=== PATIENT | male | born 1955 | race Caucasian/White ===

== ENCOUNTER 2018-07-04 15:50 | Emergency (ER) | payer OTHER ==
[2018-07-04 16:09] VITALS: RESP 18; TEMP 97.8
[2018-07-04] MEDS ORDERED: SODIUM CHLORIDE 0.9% 1,000 ML IV STA (16:30)
--- NOTE | 2018-07-04 16:34 | ED ---
General Adult HPI - General Chief complaint: ENT Stated complaint: Concerns for dehydration Time Seen by Provider: 07/04/18 15:54 Source: patient, EMS, RN notes reviewed Mode of arrival: EMS Limitations: no limitations - History of Present Illness Initial comments: Patient is a pleasant 63-year-old male presenting to the emergency department from primary care physician's office with concern for dehydration. Patient did have surgery on his throat and tongue on May 04. Patient states he does have some discomfort however has been persistent since his surgery. No worse. Patient states he does not tolerate oral intake and does use a feeding tube. Patient also has trach. Patient communicates by answering yes or no or writing. Patient does not feel he needs to be here. Patient does request having suctioning done. - Related Data Home Medications Medication Instructions Recorded Confirmed Citalopram Hydrobromide [Celexa 40 mg NG-TUBE DAILY 07/04/18 07/04/18 Oral Soln] Gabapentin Oral Soln [Neurontin 300 mg NG-TUBE HS 07/04/18 07/04/18 Oral Soln] Levothyroxine Sodium [Synthroid] 112 mcg NG-TUBE DIRECTED 07/04/18 07/04/18 Oxycodone 5mg/5ml 5 mg NG-TUBE Q6HR PRN 07/04/18 07/04/18 Verapamil [Isoptin] 40 mg NG-TUBE Q8H 07/04/18 07/04/18 Vitamin D 400 Unit/1ml 2,000 unit NG-TUBE DAILY 07/04/18 07/04/18 traZODone HCL [TraZODone HCl] 50 mg NG-TUBE HS 07/04/18 07/04/18 Allergies Allergy/AdvReac Type Severity Reaction Status Date / Time No Known Allergies Allergy Verified 07/04/18 15:54 Review of Systems ROS Statement: Those systems with pertinent positive or pertinent negative responses have been documented in the HPI. ROS Other: All systems not noted in ROS Statement are negative. Constitutional: Denies: fever, chills Eyes: Denies: eye pain ENT: Reports: throat pain (Chronic). Denies: ear pain Respiratory: Denies: dyspnea Cardiovascular: Denies: chest pain Endocrine: Denies: fatigue Gastrointestinal: Denies: abdominal pain Genitourinary: Denies: urgency Musculoskeletal: Denies: back pain Skin: Denies: rash Neurological: Denies: headache Past Medical History Past Medical History: Hypertension Additional Past Medical History / Comment(s): throat ca History of Any Multi-Drug Resistant Organisms: None Reported Additional Past Surgical History / Comment(s): left kidney removed, spleen surgery, throat/mouth/colostomy-r/t throat cancer Past Psychological History: No Psychological Hx Reported Smoking Status: Current every day smoker Past Alcohol Use History: None Reported Past Drug Use History: None Reported General Exam Limitations: no limitations General appearance: alert, in no apparent distress Head exam: Present: atraumatic Eye exam: Present: normal appearance ENT exam: Present: other (Patient has abnormal shaped tongue with suture landin. This does protrude somewhat from the mouth with some lower lip swelling as well. Patient states this is all chronic. Posterior pharynx without swelling.) Neck exam: Present: normal inspection. Absent: tenderness Respiratory exam: Present: normal lung sounds bilaterally Cardiovascular Exam: Present: regular rate, normal rhythm GI/Abdominal exam: Present: soft. Absent: tenderness Extremities exam: Present: normal inspection Neurological exam: Present: alert Psychiatric exam: Present: normal affect, normal mood Skin exam: Present: normal color Course Vital Signs 07/04/18 15:54 Temperature 97.8 F Pulse Rate 83 Respiratory 18 Rate Blood Pressure 162/98 O2 Sat by Pulse 99 Oximetry Medical Decision Making - Medical Decision Making Patient reevaluated and fully dressed sitting at bedside. Patient refuses admission and requests discharge multiple times. Case was discussed with on- call physician, Dr. Lovett, covering for Dr. Kent, who agrees patient cannot be admitted against his will. - Lab Data Result diagrams: 07/04/18 17:19 07/04/18 17:19 Lab Results 07/04/18 07/04/18 07/04/18 Range/Units 17:19 17:19 17:31 WBC 6.8 (3.8-10.6) k/uL RBC 3.49 L (4.30-5.90) m/uL Hgb 9.9 L (13.0-17.5) gm/dL Hct 32.4 L (39.0-53.0) % MCV 92.7 (80.0-100.0) fL MCH 28.4 (25.0-35.0) pg MCHC 30.6 L (31.0-37.0) g/dL RDW 15.8 H (11.5-15.5) % Plt Count 627 H (150-450) k/uL Neutrophils % 74 % Lymphocytes % 14 % Monocytes % 7 % Eosinophils % 2 % Basophils % 0 % Neutrophils # 5.1 (1.3-7.7) k/uL Lymphocytes # 1.0 (1.0-4.8) k/uL Monocytes # 0.4 (0-1.0) k/uL Eosinophils # 0.1 (0-0.7) k/uL Basophils # 0.0 (0-0.2) k/uL Hypochromasia Slight Sodium 135 L (137-145) mmol/L Potassium 4.7 (3.5-5.1) mmol/L Chloride 95 L (98-107) mmol/L Carbon Dioxide 32 H (22-30) mmol/L Anion Gap 8 mmol/L BUN 25 H (9-20) mg/dL Creatinine 0.72 (0.66-1.25) mg/dL Est GFR (CKD-EPI)AfAm >90 (>60 ml/min/1.73 sqM) Est GFR (CKD-EPI)NonAf >90 (>60 ml/min/1.73 sqM) Glucose 88 (74-99) mg/dL Calcium 9.5 (8.4-10.2) mg/dL Phosphorus 5.0 H (2.5-4.5) mg/dL Magnesium 2.2 (1.6-2.3) mg/dL Total Bilirubin 0.2 (0.2-1.3) mg/dL AST 26 (17-59) U/L ALT 18 L (21-72) U/L Alkaline Phosphatase 110 (38-126) U/L Total Protein 6.9 (6.3-8.2) g/dL Albumin 3.7 (3.5-5.0) g/dL Urine Color Yellow Urine Appearance Cloudy (Clear) Urine pH 8.0 (5.0-8.0) Ur Specific [place] 1.015 (1.001-1.035) Urine Protein Trace H (Negative) Urine Glucose (UA) Negative (Negative) Urine Ketones Negative (Negative) Urine Blood Negative (Negative) Urine Nitrite Negative (Negative) Urine Bilirubin Negative (Negative) Urine Urobilinogen <2.0 (<2.0) mg/dL Ur Leukocyte Esterase Negative (Negative) Urine RBC 2 (0-5) /hpf Ur Squamous Epith Cells <1 (0-4) /hpf Urine Bacteria Rare H (None) /hpf Hyaline Casts 2 (0-2) /lpf Urine Yeast (Budding) Moderate H (None) /hpf - Radiology Data Radiology results: image reviewed (Chest x-ray shows no acute process. COPD and mild pulmonary fibrosis.) Disposition Clinical Impression: Dehydration Disposition: HOME SELF-CARE Condition: Stable Additional Instructions: Please follow-up tomorrow with primary care physician. Return for increased pain, fever, breathing problems, increased swelling, worsening symptoms or other concerns. Please also follow-up with your surgeon, call tomorrow for follow-up in the next day or 2. Is patient prescribed a controlled substance at d/c from ED?: No Referrals: Billy Keith MD [Primary Care Provider] - 1-2 days Time of Disposition: 19:35
[2018-07-04 17:38] LABS: Basophils % (A) 0 %; Eosinophils # (A) 0.1 k/uL (0-0.7); Eosinophils % (A) 2 %; HCT 32.4 % (39.0-53.0); HGB 9.9 gm/dL (13.0-17.5); Hypochromasia Slight; Lymphocytes % (A) 14 %; MCH 28.4 pg (25.0-35.0); MCHC 30.6 g/dL (31.0-37.0); MCV 92.7 fL (80.0-100.0); Mean Platelet Volume 6.5; Monocytes # (A) 0.4 k/uL (0-1.0); Monocytes % (A) 7 %; Neutrophils # (A) 5.1 k/uL (1.3-7.7); Neutrophils % (A) 74 %; Platelet Count 627 k/uL (150-450); RBC 3.49 m/uL (4.30-5.90); RDW 15.8 % (11.5-15.5); WBC 6.8 k/uL (3.8-10.6)
[2018-07-04 17:51] LABS: ALT 18 U/L (21-72); AST 26 U/L (17-59); Albumin 3.7 g/dL (3.5-5.0); Alkaline Phosphatase 110 U/L (38-126); Anion Gap 8 mmol/L; Blood Urea Nitrogen 25 mg/dL (9-20); Calcium 9.5 mg/dL (8.4-10.2); Carbon Dioxide 32 mmol/L (22-30); Chloride 95 mmol/L (98-107); Glucose 88 mg/dL (74-99); Magnesium 2.2 mg/dL (1.6-2.3); Potassium 4.7 mmol/L (3.5-5.1); Sodium 135 mmol/L (137-145); Total Bilirubin 0.2 mg/dL (0.2-1.3); Total Protein 6.9 g/dL (6.3-8.2)
--- NOTE | 2018-07-04 17:55 | XR ---
EXAMINATION TYPE: XR chest 2V DATE OF EXAM: 07/04/2018 COMPARISON: 04/12/2016 HISTORY: Weakness and cough TECHNIQUE: Frontal and lateral views of the chest are obtained. FINDINGS: Heart and mediastinum are normal. Lungs are clear of consolidation. There are clips at the left axilla. There is tracheostomy tube. There is nasogastric tube. There is minimal coarsening of i nterstitial markings. There is mild flattening of the diaphragm. IMPRESSION: COPD and mild pulmonary fibrosis. No acute lung disease. No adverse change compared to o ld exam.
[2018-07-04 17:56] LABS: Appearance,Urine Cloudy (Clear); Bacteria,Urine Rare /hpf; Bilirubin,Urine Negative (Negative); Blood,Urine Negative (Negative); Budding Yeast,Urine Moderate /hpf; Color,Urine Yellow; Glucose,Urine (UA) Negative (Negative); Hyaline Casts,Urine 2 /lpf (0-2); Ketones,Urine Negative (Negative); Leukocyte Esterase,Urine Negative (Negative); Nitrite,Urine Negative (Negative); Protein,Urine Trace (Negative); RBC,Urine 2 /hpf (0-5); Specific Gravity,Urine 1.015 (1.001-1.035); Squamous Epithelial Cell,Urine <1 /hpf (0-4); Urobilinogen,Urine <2.0 mg/dL (<2.0)
[2018-07-04 20:06] VITALS: BP 179/109; PULSE 85
== END 2018-07-04 20:06 | disposition home or self-care (01) ==
LOC: EC 15:50
DX: E86.0 Dehydration (principal); R09.89 Other specified symptoms and signs involving the circulatory and respiratory systems; R19.8 Other specified symptoms and signs involving the digestive system and abdomen; I10 Essential (primary) hypertension; F17.200 Nicotine dependence, unspecified, uncomplicated; Z85.818 Personal history of malignant neoplasm of other sites of lip, oral cavity, and pharynx; Z98.890 Other specified postprocedural states; Z53.29 Procedure and treatment not carried out because of patient's decision for other reasons; Z79.890 Hormone replacement therapy; Z79.899 Other long term (current) drug therapy
CPT/HCPCS: 36415; 71046; 80053; 81001; 83735; 84100; 85025; 96360; 99283

== ENCOUNTER 2018-07-20 22:56 | Emergency (ER) | payer OTHER ==
--- NOTE | 2018-07-20 23:01 | ED ---
General Adult HPI - General Stated complaint: Trach Issue Time Seen by Provider: 07/20/18 23:00 - History of Present Illness Initial comments: Omar is a 63-year-old gentleman with extensive PMH including throat CA for which he has a trach and chronic NG tube. Patient is brought to the emergency department today via EMS after his tracheostomy tube became displaced. Patient is uncertain when his tracheostomy tube became displaced. He doesn't know how became displaced. Gastric tube is obtained by his trach collar upon initial arrival. Patient's in no acute distress oxygen saturation 99% on room air. - Related Data Home Medications Medication Instructions Recorded Confirmed Citalopram Hydrobromide [Celexa 40 mg NG-TUBE DAILY 07/04/18 07/04/18 Oral Soln] Gabapentin Oral Soln [Neurontin 300 mg NG-TUBE HS 07/04/18 07/04/18 Oral Soln] Levothyroxine Sodium [Synthroid] 112 mcg NG-TUBE DIRECTED 07/04/18 07/04/18 Oxycodone 5mg/5ml 5 mg NG-TUBE Q6HR PRN 07/04/18 07/04/18 Verapamil [Isoptin] 40 mg NG-TUBE Q8H 07/04/18 07/04/18 Vitamin D 400 Unit/1ml 2,000 unit NG-TUBE DAILY 07/04/18 07/04/18 traZODone HCL [TraZODone HCl] 50 mg NG-TUBE HS 07/04/18 07/04/18 Allergies Allergy/AdvReac Type Severity Reaction Status Date / Time No Known Allergies Allergy Verified 07/20/18 23:20 Review of Systems ROS Statement: Those systems with pertinent positive or pertinent negative responses have been documented in the HPI. ROS Other: All systems not noted in ROS Statement are negative. Past Medical History Past Medical History: Hypertension Additional Past Medical History / Comment(s): throat ca History of Any Multi-Drug Resistant Organisms: None Reported Additional Past Surgical History / Comment(s): left kidney removed, spleen surgery Past Alcohol Use History: Abuse General Exam - General Exam Comments Initial Comments: Physical Exam GENERAL: Chronically ill-appearing malnourished gentleman HENT: NG tube in place in left naris with the bridle sewn in the septum Swelling of the lips and tongue which are chronic in nature with some skin breakdown of the tongue Well-healed tracheostomy tract is visible with tracheostomy tube hanging from the trach collar EYES: PERRL, EOMI PULMONARY: Unlabored respirations. No audible rales rhonchi or wheezing was noted. CARDIOVASCULAR: There is a regular rate and rhythm without any murmurs gallops or rubs. ABDOMEN: Scaphoid SKIN: Dry : Deferred NEUROLOGIC: Minimally verbal but awake alert oriented MUSCULOSKELETAL: Generalized atrophy PSYCHIATRIC: Agitation Limitations: no limitations Course Vital Signs 07/20/18 23:00 Temperature 98.7 F Pulse Rate 78 Respiratory 16 Rate Blood Pressure 140/73 O2 Sat by Pulse 98 Oximetry Medical Decision Making - Medical Decision Making Patient was seen and evaluated immediately upon arrival to the emergency department in conjunction with respiratory therapy no sign patient was in no acute distress he had a well-developed treat he asked me tract with tracheostomy tube pain from his trach collar A clean tracheostomy tube was obtained and placed with no complications patient reported he was comfortable with plan for discharge home requested that we call a cab. Disposition Clinical Impression: Encounter for tracheostomy tube change Disposition: HOME SELF-CARE Condition: Stable Instructions (If sedation given, give patient instructions): Tracheostomy Care (ED) Is patient prescribed a controlled substance at d/c from ED?: No Referrals: None,Stated [Primary Care Provider] - 1-2 days
[2018-07-20 23:03] VITALS: BP 140/73; PULSE 78; RESP 16; TEMP 98.7
== END 2018-07-20 23:45 | disposition home or self-care (01) ==
LOC: EC 22:56
DX: Z43.0 Encounter for attention to tracheostomy (principal); R45.1 Restlessness and agitation; M62.50 Muscle wasting and atrophy, not elsewhere classified, unspecified site; I10 Essential (primary) hypertension; Z79.890 Hormone replacement therapy; Z79.899 Other long term (current) drug therapy; Z85.818 Personal history of malignant neoplasm of other sites of lip, oral cavity, and pharynx; Z90.5 Acquired absence of kidney
CPT/HCPCS: 31502; 99283

== ENCOUNTER 2018-11-13 18:41 | Observation (INO) | payer OTHER ==
[2018-11-13] MEDS ORDERED: MORPHINE SULFATE 4 MG/ML SYRINGE IV STA (19:07)
[2018-11-13] MEDS ORDERED: SODIUM CHLORIDE 0.9% 1,000 ML IV STA ×2 (19:07)
[2018-11-13 19:23] LABS: Anisocytosis Slight; Basophils % (A) 1 %; Eosinophils # (A) 0.2 k/uL (0-0.7); Eosinophils % (A) 3 %; HCT 34.4 % (39.0-53.0); HGB 11.5 gm/dL (13.0-17.5); Lymphocytes # (A) 0.8 k/uL (1.0-4.8); Lymphocytes % (A) 17 %; MCH 30.9 pg (25.0-35.0); MCHC 33.3 g/dL (31.0-37.0); MCV 92.8 fL (80.0-100.0); Mean Platelet Volume 7.2; Monocytes # (A) 0.3 k/uL (0-1.0); Monocytes % (A) 7 %; Neutrophils # (A) 3.3 k/uL (1.3-7.7); Neutrophils % (A) 69 %; Platelet Count 403 k/uL (150-450); RBC 3.71 m/uL (4.30-5.90); RDW 16.6 % (11.5-15.5); WBC 4.7 k/uL (3.8-10.6)
[2018-11-13 19:31] LABS: ALT 9 U/L (21-72); AST 34 U/L (17-59); African American GFR (CKD) >90 (>60 ml/min/1.73 sqM); Albumin 4.7 g/dL (3.5-5.0); Alkaline Phosphatase 68 U/L (38-126); Anion Gap 11 mmol/L; Blood Urea Nitrogen 21 mg/dL (9-20); Calcium 9.3 mg/dL (8.4-10.2); Carbon Dioxide 29 mmol/L (22-30); Chloride 88 mmol/L (98-107); Creatine Kinase 139 U/L (55-170); Glucose 85 mg/dL (74-99); Phosphorus 3.7 mg/dL (2.5-4.5); Potassium 3.9 mmol/L (3.5-5.1); Sodium 128 mmol/L (137-145); Total Bilirubin 0.2 mg/dL (0.2-1.3); Total Protein 7.9 g/dL (6.3-8.2)
[2018-11-13 19:33] LABS: Alcohol 118 mg/dL
[2018-11-13 19:35] LABS: INR 0.9 (<1.2); Partial Thromboplastin Time 27.3 sec (22.0-30.0); Prothrombin Time 9.4 sec (9.0-12.0)
--- NOTE | 2018-11-13 19:55 | ED ---
ENT HPI - General Chief complaint: ENT Stated complaint: mouth pain Time Seen by Provider: 11/13/18 19:05 Source: patient, RN notes reviewed, old records reviewed Mode of arrival: wheelchair Limitations: language barrier, altered mental status, physical limitation - History of Present Illness Initial comments: This is a 63-year-old male the ER for evaluation. Presents today for evaluation regards to facial swelling of facial pain. Patient does not want any further treatment regarding his face. The trachea is on another tracheostomy, he currently is in NG tube placed he states he does not want a PEG tube. Patient is to being suicidal over significance of life. Does admit to drinking alcohol today. MD complaint: sore throat, difficulty swallowing, other (Significant cancer) -: month(s) Location: throat Severity: severe Severity scale (1-10): 9 Quality: aching, sharp Consistency: constant Improves with: none Worsens with: swallowing, eating, movement Context-Epistaxis: history of similar Associated Symptoms: pain with swallowing, sore throat - Related Data Home Medications Medication Instructions Recorded Confirmed Verapamil [Isoptin] 40 mg NG-TUBE Q8H 07/04/18 11/13/18 Allergies Allergy/AdvReac Type Severity Reaction Status Date / Time No Known Allergies Allergy Verified 11/13/18 19:26 Review of Systems ROS Statement: Those systems with pertinent positive or pertinent negative responses have been documented in the HPI. ROS Other: All systems not noted in ROS Statement are negative. Past Medical History Past Medical History: Hypertension Additional Past Medical History / Comment(s): throat ca History of Any Multi-Drug Resistant Organisms: None Reported Additional Past Surgical History / Comment(s): left kidney removed, spleen surgery Past Psychological History: No Psychological Hx Reported Smoking Status: Current every day smoker Past Alcohol Use History: Abuse Past Drug Use History: Marijuana General Exam - General Exam Comments Initial Comments: Significant swelling to his face mouth tongue throat Limitations: language barrier, altered mental status, physical limitation General appearance: alert, in no apparent distress Head exam: Present: atraumatic, normocephalic, normal inspection, other (Patient is significantly dependent and swollen tongue face neck post surgical with NG tube placed) Eye exam: Present: normal appearance, PERRL, EOMI. Absent: scleral icterus, conjunctival injection, periorbital swelling ENT exam: Present: normal exam, mucous membranes moist Neck exam: Present: normal inspection. Absent: tenderness, meningismus, lymphadenopathy Respiratory exam: Present: normal lung sounds bilaterally. Absent: respiratory distress, wheezes, rales, rhonchi, stridor Cardiovascular Exam: Present: regular rate, normal rhythm, normal heart sounds. Absent: systolic murmur, diastolic murmur, rubs, gallop, clicks GI/Abdominal exam: Present: soft, normal bowel sounds. Absent: distended, tenderness, guarding, rebound, rigid Extremities exam: Present: normal inspection, full ROM, normal capillary refill. Absent: tenderness, pedal edema, joint swelling, calf tenderness Back exam: Present: normal inspection Neurological exam: Present: alert, oriented X3, CN II-XII intact Psychiatric exam: Present: normal affect, normal mood Skin exam: Present: warm, dry, intact, normal color. Absent: rash Course Vital Signs 11/13/18 11/13/18 11/13/18 18:53 20:40 21:10 Temperature 98.6 F Pulse Rate 89 72 Respiratory 18 19 Rate Blood Pressure 100/69 134/84 125/71 O2 Sat by Pulse 98 96 97 Oximetry 11/13/18 11/13/18 11/13/18 21:40 21:50 22:00 Temperature Pulse Rate 72 80 73 Respiratory 13 18 13 Rate Blood Pressure 110/73 O2 Sat by Pulse 97 95 95 Oximetry 11/13/18 11/13/18 22:10 22:20 Temperature Pulse Rate 69 74 Respiratory 14 16 Rate Blood Pressure 127/74 O2 Sat by Pulse 95 96 Oximetry - Reevaluation(s) Reevaluation #1: 11/13/18 21:42 Medical records reviewed Reevaluation #2: 11/13/18 21:42 Medical clear for psychiatric evaluation Medical Decision Making - Medical Decision Making 63 male the ER for evaluation. Patient resents today for evaluation regards to pain, pain from cancer cancer pain patient is also suicidal, chemical cancer. Patient be admitted for consult by hospice - Lab Data Result diagrams: 11/13/18 19:15 11/13/18 19:15 Lab Results 11/13/18 11/13/18 11/13/18 Range/Units 19:15 19:15 19:15 WBC 4.7 (3.8-10.6) k/uL RBC 3.71 L (4.30-5.90) m/uL Hgb 11.5 L (13.0-17.5) gm/dL Hct 34.4 L (39.0-53.0) % MCV 92.8 (80.0-100.0) fL MCH 30.9 (25.0-35.0) pg MCHC 33.3 (31.0-37.0) g/dL RDW 16.6 H (11.5-15.5) % Plt Count 403 (150-450) k/uL Neutrophils % 69 % Lymphocytes % 17 % Monocytes % 7 % Eosinophils % 3 % Basophils % 1 % Neutrophils # 3.3 (1.3-7.7) k/uL Lymphocytes # 0.8 L (1.0-4.8) k/uL Monocytes # 0.3 (0-1.0) k/uL Eosinophils # 0.2 (0-0.7) k/uL Basophils # 0.0 (0-0.2) k/uL Anisocytosis Slight PT 9.4 (9.0-12.0) sec INR 0.9 (<1.2) APTT 27.3 (22.0-30.0) sec Sodium 128 L (137-145) mmol/L Potassium 3.9 (3.5-5.1) mmol/L Chloride 88 L (98-107) mmol/L Carbon Dioxide 29 (22-30) mmol/L Anion Gap 11 mmol/L BUN 21 H (9-20) mg/dL Creatinine 0.64 L (0.66-1.25) mg/dL Est GFR (CKD-EPI)AfAm >90 (>60 ml/min/1.73 sqM) Est GFR (CKD-EPI)NonAf >90 (>60 ml/min/1.73 sqM) Glucose 85 (74-99) mg/dL Calcium 9.3 (8.4-10.2) mg/dL Phosphorus 3.7 (2.5-4.5) mg/dL Magnesium 2.0 (1.6-2.3) mg/dL Total Bilirubin 0.2 (0.2-1.3) mg/dL AST 34 (17-59) U/L ALT 9 L (21-72) U/L Alkaline Phosphatase 68 (38-126) U/L Creatine Kinase 139 (55-170) U/L Troponin I (0.000-0.034) ng/mL Total Protein 7.9 (6.3-8.2) g/dL Albumin 4.7 (3.5-5.0) g/dL Urine Opiates Screen (NotDetected) Ur Oxycodone Screen (NotDetected) Urine Methadone Screen (NotDetected) Ur Propoxyphene Screen (NotDetected) Ur Barbiturates Screen (NotDetected) U Tricyclic Antidepress (NotDetected) Ur Phencyclidine Scrn (NotDetected) Ur Amphetamines Screen (NotDetected) U Methamphetamines Scrn (NotDetected) U Benzodiazepines Scrn (NotDetected) Urine Cocaine Screen (NotDetected) U Marijuana (THC) Screen (NotDetected) Serum Alcohol 118 mg/dL 11/13/18 11/13/18 Range/Units 19:15 22:00 WBC (3.8-10.6) k/uL RBC (4.30-5.90) m/uL Hgb (13.0-17.5) gm/dL Hct (39.0-53.0) % MCV (80.0-100.0) fL MCH (25.0-35.0) pg MCHC (31.0-37.0) g/dL RDW (11.5-15.5) % Plt Count (150-450) k/uL Neutrophils % % Lymphocytes % % Monocytes % % Eosinophils % % Basophils % % Neutrophils # (1.3-7.7) k/uL Lymphocytes # (1.0-4.8) k/uL Monocytes # (0-1.0) k/uL Eosinophils # (0-0.7) k/uL Basophils # (0-0.2) k/uL Anisocytosis PT (9.0-12.0) sec INR (<1.2) APTT (22.0-30.0) sec Sodium (137-145) mmol/L Potassium (3.5-5.1) mmol/L Chloride (98-107) mmol/L Carbon Dioxide (22-30) mmol/L Anion Gap mmol/L BUN (9-20) mg/dL Creatinine (0.66-1.25) mg/dL Est GFR (CKD-EPI)AfAm (>60 ml/min/1.73 sqM) Est GFR (CKD-EPI)NonAf (>60 ml/min/1.73 sqM) Glucose (74-99) mg/dL Calcium (8.4-10.2) mg/dL Phosphorus (2.5-4.5) mg/dL Magnesium (1.6-2.3) mg/dL Total Bilirubin (0.2-1.3) mg/dL AST (17-59) U/L ALT (21-72) U/L Alkaline Phosphatase (38-126) U/L Creatine Kinase (55-170) U/L Troponin I <0.012 (0.000-0.034) ng/mL Total Protein (6.3-8.2) g/dL Albumin (3.5-5.0) g/dL Urine Opiates Screen Detected H (NotDetected) Ur Oxycodone Screen Not Detected (NotDetected) Urine Methadone Screen Not Detected (NotDetected) Ur Propoxyphene Screen Not Detected (NotDetected) Ur Barbiturates Screen Not Detected (NotDetected) U Tricyclic Antidepress Not Detected (NotDetected) Ur Phencyclidine Scrn Not Detected (NotDetected) Ur Amphetamines Screen Not Detected (NotDetected) U Methamphetamines Scrn Not Detected (NotDetected) U Benzodiazepines Scrn Not Detected (NotDetected) Urine Cocaine Screen Not Detected (NotDetected) U Marijuana (THC) Screen Not Detected (NotDetected) Serum Alcohol mg/dL - EKG Data -: EKG Interpreted by Me (EKG shows sinus rhythm rate of 77, MI 150, QRS 90, QTc 44) - Radiology Data Radiology results: report reviewed (CT soft tissue neck shows significant postop changes, CA), image reviewed Disposition Clinical Impression: Neck mass, Suicidal behavior, Depression Disposition: ADMITTED IP TO THIS HOSP Condition: Critical Is patient prescribed a controlled substance at d/c from ED?: No Referrals: None,Stated [Primary Care Provider] - 1-2 days
--- NOTE | 2018-11-13 20:21 | CT ---
EXAMINATION TYPE: CT soft tissue neck wo con DATE OF EXAM: 11/13/2018 HISTORY: Mouth and throat pain. COMPARISON: None CT DLP: 215.8 mGycm. Automated Exposure Control for Dose Reduction was Utilized. TECHNIQUE: Multiple axial sections were obtained from the top of the orbits to the aortic arch with n o contrast. FINDINGS: There are numerous surgical clips at the submandibular region. There is deformity of the right hemima ndible which is in the posterior abnormal position. There is increased soft tissue density around the right hemimandible. There are superior mediastinal lymph nodes that measure up to 1 cm. Thoracic aor ta is atheromatous. Thyroid gland is symmetric. The epiglottis is normal. The tonsils and adenoids ap pear intact. There is nasogastric tube noted. Parotid glands are symmetric. The cervical vertebra have normal alignment. There is no compression fr acture. I see no focal bone destruction in the cervical spine. IMPRESSION: There is a plate in the anterior right mouth that apparently was associated with the right hemimandib le. The right hemimandible however is in abnormal posterior position posterior to the plate that coul d relate to a fracture. Comparison with an old exam would be helpful. Extensive surgical changes at t he submandibular region. Soft tissue density around the right inferior hemimandible. Recurrent tumor is not excluded. Exam limited by lack of any contrast.
[2018-11-13] MEDS ORDERED: DEXAMETHASONE SOD PHOSPHATE 10 MG/ML 1 ML VIAL IV STA (21:39)
[2018-11-13 22:23] LABS: Amphetamine Screen,Urine Not Detected (NotDetected); Barbiturate Screen,Urine Not Detected (NotDetected); Benzodiazepines Screen,Urine Not Detected (NotDetected); Cocaine Screen,Urine Not Detected (NotDetected); Methadone Screen, Urine Not Detected (NotDetected); Opiate Screen,Urine Detected (NotDetected); Oxycodone Screen, Urine Not Detected (NotDetected); Phencyclidine Screen,Urine Not Detected (NotDetected); Tricyclic Antidepressant,Urine Not Detected (NotDetected); Urn Cannabinoid Scrn Not Detected (NotDetected)
[2018-11-13] MEDS ORDERED: DEXTROSE 5%-0.45% NACL 1,000 ML IV ONE (23:39)
--- NOTE | 2018-11-14 01:17 | P.HPIM ---
History of Present Illness H&P Date: 11/14/18 The patient is a 63 yo M with a PMH of HTN, throat ca s/p resection, previous trach s/p reversal, chronic NG tube, and facial swelling with difficulty clearing secretions presents to the ED for facial pain and suicidal ideation. The patient communicates with yes and no answers and didn't wish to use any written communication. The history was thereby limited since patient didn't wish to answer all questions. The patient reports 03/07 continued face and neck pain, chronic, on-going for months. The patient follows with a tertiary care center for his malignancy, which was last operated on in 04/2019. He however denies being on any recent chemotherapy or radiation and notes that he was told he won 't' be undergo any further treatment for the cancer. During the screening questions in the ED, the patient had answered yes to depression. He states that he has a plan for how he wishes to commit suicide due to the chronic pain and apparently terminal tumor. He otherwise denied fever, chills, chest pain, SOB, nausea, or vomiting. He underwent an extensive evaluation in the ED w/ CT neck showing mandibular abnormalities w/ post-surgical changes and recurrent tumor not excluded. EKG revealed a NSR @ 77 bpm w/ prolonged QTC at 484. Laboratory evaluation revealed a Hgb of 11.5, platelets 402, Na 128, Cr 0.64, and Troponin < 0.012. Review of Systems Pertinent positives and negatives as discussed in HPI, a complete review of systems was performed and all other systems are negative. Past Medical History Past Medical History: Hypertension Additional Past Medical History / Comment(s): throat ca History of Any Multi-Drug Resistant Organisms: None Reported Additional Past Surgical History / Comment(s): left kidney removed, spleen surgery Past Psychological History: No Psychological Hx Reported Smoking Status: Current every day smoker Past Alcohol Use History: Abuse Past Drug Use History: Marijuana - Past Family History Mother Family Medical History: COPD Medications and Allergies Home Medications Medication Instructions Recorded Confirmed Type Verapamil [Isoptin] 40 mg NG-TUBE Q8H 07/04/18 11/13/18 History Allergies Allergy/AdvReac Type Severity Reaction Status Date / Time No Known Allergies Allergy Verified 11/13/18 19:26 Physical Exam Vitals: Vital Signs Temp Pulse Resp BP Pulse Ox 11/14/18 00:10 71 18 139/85 95 11/13/18 23:40 98.6 F 77 19 117/91 96 11/13/18 23:20 80 138/80 97 11/13/18 22:40 66 13 128/83 96 11/13/18 22:30 69 16 127/74 95 11/13/18 22:20 74 16 96 11/13/18 22:10 69 14 127/74 95 11/13/18 22:00 73 13 95 11/13/18 21:50 80 18 95 11/13/18 21:40 72 13 110/73 97 11/13/18 21:10 72 19 125/71 97 11/13/18 20:40 134/84 96 11/13/18 18:53 98.6 F 89 18 100/69 98 Intake and Output 11/13/18 11/13/18 11/14/18 14:59 22:59 06:59 Other: Weight 60.781 kg General: non toxic, no distress, appears at stated age, normal weight Derm: no unusual rashes/lesions no unusual ecchymoses, warm, dry Head: atraumatic, normocephalic, symmetric Eyes: EOMI, no lid lag, anicteric sclera, pupils equal round reactive to light ENT: Nose and ears atraumatic, swollen tongue w/ deformity of the mandible, some secretions, inability to fully open mouth, NG tube in place Neck: No thyromegaly, no cervical lymphadenopathy, trachea midline, supple Cardiovascular: S1S2 reg, no murmur, positive posterior tibial pulse bilateral, no edema, capillary refill less than 2 seconds Lungs: CTA bilateral, no rhonchi, no rales , no accessory muscle use Abdominal: soft, nontender to palpation, no guarding, no appreciable organomegaly, normal bowel sounds Ext: no gross muscle atrophy, muscle strength 5 out of 5 in all 4 extremities grossly, no contractures, Neuro: light touch intact all 4 extremities, finger to nose within normal limits Psych: Alert, oriented, depressed affect Results CBC & Chem 7: 11/13/18 19:15 11/13/18 19:15 Labs: Abnormal Lab Results - Last 24 Hours (Table) 11/13/18 11/13/18 11/13/18 Range/Units 19:15 19:15 22:00 RBC 3.71 L (4.30-5.90) m/uL Hgb 11.5 L (13.0-17.5) gm/dL Hct 34.4 L (39.0-53.0) % RDW 16.6 H (11.5-15.5) % Lymphocytes # 0.8 L (1.0-4.8) k/uL Sodium 128 L (137-145) mmol/L Chloride 88 L (98-107) mmol/L BUN 21 H (9-20) mg/dL Creatinine 0.64 L (0.66-1.25) mg/dL ALT 9 L (21-72) U/L Urine Opiates Screen Detected H (NotDetected) Assessment and Plan Plan: Depression in the setting of possibly terminal head and neck malignancy -Consult psychiatry -Suicide precautions -Obtain collateral information from PMD (Dr Kent) and family members in am -Will consider palliative care w/ possible hospice-care after more information obtain and psychiatry clearance Face and neck pain -Pain control w/ morphine Hyponatremia, while on tube feeding -Monitor for now -Social Studies Teacher consult HTN -Confirm home medications in AM and restart accordingly -Currently normotensive DVT prophylaxis -Lovenox The patient is admitted with an anticipated less than 2 midnight stay for evaluation of facial pain and depression. CODE STATUS:Full-Code Discussed with: Patient Anticipated discharge date: 11/16/[address]: Home A total of 45 minutes was spent on the care of this complex patient more than 50% of the time was spent in counseling and care coordination.
[2018-11-14] MEDS: MORPHINE SULFATE 4 MG/ML SYRINGE IVP PRN ×3 (02:45→15:28)
[2018-11-14] MEDS: ENOXAPARIN 40 MG/0.4 ML SYRINGE SQ SCH ×2 (08:49→08:51)
[2018-11-14 09:29] LABS: Anisocytosis Slight; HCT 36.5 % (39.0-53.0); HGB 11.5 gm/dL (13.0-17.5); MCH 30.5 pg (25.0-35.0); MCHC 31.4 g/dL (31.0-37.0); Macrocytosis Slight; Mean Platelet Volume 7.2; Platelet Count 496 k/uL (150-450); RBC 3.77 m/uL (4.30-5.90); RDW 16.8 % (11.5-15.5); WBC 7.2 k/uL (3.8-10.6)
[2018-11-14 10:03] LABS: African American GFR (CKD) >90 (>60 ml/min/1.73 sqM); Anion Gap 8 mmol/L; Blood Urea Nitrogen 18 mg/dL (9-20); Calcium 9.2 mg/dL (8.4-10.2); Carbon Dioxide 27 mmol/L (22-30); Chloride 98 mmol/L (98-107); Glucose 129 mg/dL (74-99); Potassium 5.1 mmol/L (3.5-5.1); Sodium 133 mmol/L (137-145)
[2018-11-14 11:49] VITALS: BMI 21.6
--- NOTE | 2018-11-14 16:04 | P.PN ---
Progress Note - Text Progress Note Date: 11/14/18 Please refer to H&P for full documentation. 63-year-old male with PMH of head and neck cancer presents to the ED for suicidal ideations. Patient was seen and examined. No acute events overnight. Patient reports chronic headache and neck pain that is uncontrolled. Currently requesting incr ease in his pain medication. He currently lives with his daughter. States that living with his daughter is unbearable and he no longer wants to live with her. States that he would like some sort of housing arrangement that is and not a detention with an in-home nurse. States that he would like to be DNR/DNI. Also refusing any sort of intervention, chemotherapy or radiation or further workup. Discussed with case management. Plans for social work consult. We will increase his pain medication.
[2018-11-14] MEDS: HYDROmorphone 1 MG/ML 1 ML SYRINGE IVP PRN ×2 (18:07→21:44)
--- NOTE | 2018-11-14 18:29 | P.CN ---
Psychiatric Consult - . Consult date: 11/14/18 Consult:: 11/14/18 18:16 Identification: Patient is a 63-year-old male who presented to the emergency room with facial swelling and pain. Reason for Consult: Suicidal ideation, depression History of Present Illness: Patient's chart was reviewed, the patient was seen and interviewed in his room no family members were present. Patient is unable to speak easily due to his cancer, he was able to shake his head yes and no and then did agree to write some answers for me. Patient states that he was suicidal yesterday because of the pain, states that he is not currently suicidal and denied that he had a current plan. Patient is a fair historian due to his limitations in speaking, and not wanting to write extensive responses to questions. Patient is diagnosed with an unknown head and neck cancer status post resection status post previous tracheotomy with a reversal. Per the nurse he has been treated at the [facility]. Currently has an NG tube and the patient did state that he refused a PEG tube. When I asked the patient what his understanding of current treatment options are he told me that there are not. Patient stated that my evaluation of him was all screwed up, he shook his head yes to the fact that he came to the hospital due to increasing pain and also due to the fact that his daughter is getting unbearable but he could not elaborate on that. Patient states that he doesn't want to continue living with her and was not living with her prior to his diagnosis of cancer. Patient has no prior psychiatric history he denies any prior suicide attempts he denies that he has a current plan or current intent to act and states that his pain is much better controlled and he is no longer having suicidal thoughts. Patient stated that there is no further treatment, but wrote down that he is not done just yet. Patient stated that he has never been treated as an inpatient for psychiatric problems and has never been prescribed any psychiatric medications. He denied any consultations at the [facility] with psychiatrists while receiving treatment for his cancer. Patient denied that he is ever been placed on any psychotropic medication for any reason. Past Psychiatric History: Patient denies any prior history of inpatient or outpatient treatment, treatment with any psychotropic medication and no history of suicide attempts Past Medical/Surgical History: Hypertension status post left nephrectomy and status post splenectomy. Patient is status post surgery for head and neck cancer and has had a prior tracheostomy. Patient currently has an NG tube and had refused a PEG tube. He states that he also received chemotherapy and radiation treatment. Social History: Patient served in the , he has one daughter and is a . patient was living on his own prior to his diagnosis and is currently living with his daughter. Mental status: Patient is lying in a hospital bed he has an NG tube placed for feeding purposes, there is an obvious swelling of his tongue due to his head and neck cancer, patient made eye contact intermittently. Patient when he spoke was difficult to understand, he responded to most questions shaking his head yes or no and did write down a few responses but stated that he did not feel like continuing writing answers. Patient stated that he felt suicidal yesterday because of his pain he denied current suicidal ideation and stated that he has no intent to act and no current plan. Patient stated that he was not done with this, referring to his cancer and wrote that his daughter is unbearable and he does not want to continue living with her. Patient denied feeling depressed, did not endorse any prior psychiatric history. Patient was irritable and frustrated with his inability to speak, did not want to write answers out and so the interview was kept brief. Assessment: His medical records from [facility] are not available, his daughter is not present, patient has an unknown head and neck cancer that is been treated with a resection and chemotherapy and radiation per the patient. He had a previous tracheostomy which has been reversed and currently has an NG tube for feeding as he refused a PEG tube. Patient presented to the emergency room due to increasing pain made a comment that he was suicidal and depressed on exam today the patient denies that he is feeling suicidal and states that his daughter is unbearable and he does not want to return to live with her. It is unclear if the patient has been offered hospice care prior to his admission here, he states that they told him there was no further treatment. Patient when I interviewed him denied that he was currently suicidal and stated that he doesn't want to commit suicide and the patient has no prior psychiatric history. Diagnosis: Other specified depressive disorder Plan: Patient at this time is not voicing any suicidal ideation and states that he doesn't want to commit suicide he wrote to me that he is not done with this, he stated that his problem last evening was his pain which is now better control and that his daughter is becoming unbearable which she was not able to elaborate on and his daughter was not present. Patient has no prior psychiatric history, no history of suicide attempts and has never been treated with psychotropic medication. I will discontinue the one-to-one sitter for suicide precautions and the patient does not need inpatient psychiatric care. Patient reports that his pain is better controlled but that he needs to live somewhere other than with his daughter. At this time I will not recommend beginning any anti depressant medication, as the patient states his pain is better controlled and he is not feeling as depressed, more irritable about living with his daughter. Patient had requested to sign a DNR/DNI, would recommend a discussion with hospice care as well as obtaining information regarding his prior treatment and recommendations at the [facility]. I will sign off the case if there are any further questions or concerns please don't hesitate to contact me
[2018-11-15] MEDS: HYDROmorphone 1 MG/ML 1 ML SYRINGE IVP PRN ×3 (05:19→11:27)
[2018-11-15 07:56] VITALS: RESP 15
[2018-11-15] MEDS: ENOXAPARIN 40 MG/0.4 ML SYRINGE SQ SCH (08:51)
--- NOTE | 2018-11-15 14:36 | P.DS ---
Providers Date of admission: 11/14/18 00:00 Expected date of discharge: 11/15/18 Attending physician: Abad Manley MD Consults: 11/14/18 01:07 Consult Physician Urgent Consulting Provider: Courtney Yi Consult Reason/Comments: Depression w/ suicidal ideation Do you want consulting provider notified?: Already Contacted Primary care physician: Stated None Hospital Course: The patient is a 63 yo M with a PMH of HTN, throat ca s/p resection, previous trach s/p reversal, chronic NG tube, and facial swelling with difficulty clearing secretions presents to the ED for facial pain and suicidal ideation. The patient communicates with yes and no answers and didn't wish to use any written communication. The history was thereby limited since patient didn't wish to answer all questions. The patient reports 03/07 continued face and neck pain, chronic, on-going for months. The patient follows with a tertiary care center for his malignancy, which was last operated on in 04/2019. He however denies being on any recent chemotherapy or radiation and notes that he was told he won't' be undergo any further treatment for the cancer. During the screening questions in the ED, the patient had answered yes to depression. He states that he has a plan for how he wishes to commit suicide due to the chronic pain and apparently terminal tumor. He otherwise denied fever, chills, chest pain, SOB, nausea, or vomiting. He underwent an extensive evaluation in the ED w/ CT neck showing mandibular abnormalities w/ post-surgical changes and recurrent tumor not excluded. EKG revealed a NSR @ 77 bpm w/ prolonged QTC at 484. Laboratory evaluation revealed a Hgb of 11.5, platelets 402, Na 128, Cr 0.64, and Troponin < 0.012. With regard to his suicidal ideation, patient was placed on suicidal precautions and psychiatry was consulted. Psychiatry recommended that the sitter be discontinued and that the patient was not suicidal. Patient's pain in the face and neck was treated initially with morphine and was switched to Dilaudid for better pain control. Patient during the interview related that he was currently living with his daughter and that his daughter was unbearable. He reported that he no longer wanted to live with her. He was requesting a housing arrangement that was not a snf with an in house nurse. Patient also requested DNR/DNI status. He refused any sort of intervention with regard to his throat cancer. This included chemotherapy, radiation or any further workup. General: [non toxic], [no distress], [appears at stated age] Derm: [warm], [dry], [dermatitis of the scalp] Head: [atraumatic], [normocephalic], [symmetric] Eyes: [EOMI], [no lid lag], [anicteric sclera] Mouth: [no lip lesion], [swollen tongue with mandible deformity and NG tube in place] Cardiovascular: [S1S2 reg], [no murmur], [positive DP pulse bilateral] Lungs: [CTA bilateral], [no rhonchi, no rales] , [no accessory muscle use] Abdominal: [soft], [ nontender to palpation], [no guarding], [no appreciable organomegaly] Ext: [no gross muscle atrophy], [no edema], [no contractures] Neuro: [no focal neuro deficits] Psych: [Alert], [oriented], [appropriate affect] Assessment and Plan Suicidal ideation in the setting of possibly terminal head and neck malignancy Face and neck pain Hyponatremia Evaluated by psychiatry. Deemed to be not suicidal. No antidepressants recommended. Pain controlled with Dilaudid 1 mg IV every 3 hours. Sodium 128-133. Likely secondary to dehydration and tube feeds. Plans: Repeat BMP in 3 days. Chronic in nature. Discussed with social work. Patient refusing to work with PT at this time and is mobile. Patient refusing [place]. Patient is refusing snf placement. Used to live with daughter, not welcome anymore. Will DC to alf that will accept a patient with NG tube. Pertinent Studies: neck CT Patient Condition at Discharge: Poor Plan - Discharge Summary New Discharge Prescriptions: Continue Verapamil [Isoptin] 40 mg NG-TUBE Q8H Discharge Medication List Verapamil [Isoptin] 40 mg NG-TUBE Q8H 07/04/18 [History] Follow up Appointment(s)/Referral(s): None,Stated [Primary Care Provider] - 1-2 days Ambulatory/Diagnostic Orders: Basic Metabolic Panel [LAB.AMB] Time Frame: 3 Days, Location: None Selected Activity/Diet/Wound Care/Special Instructions: Diet: Via NG tube Follow-up with PCP within 1-2 days of discharge. Please obtain a BMP within 3 days of discharge. You can follow this up with your PCP. Please take all medications as advised. Please come to the ED or call 911 for difficulty breathing or suicidal ideations. Discharge Disposition: HOME SELF-CARE
[2018-11-15 15:38] VITALS: BP 165/88; PULSE 70; TEMP 98.3
== END 2018-11-15 15:57 | disposition home or self-care (01) ==
LOC: EC 18:41 → 4SSUR 11-14
PROVIDERS: ADMIT Internal Medicine; ATTEND Internal Medicine
DX: F32.9 Major depressive disorder, single episode, unspecified (principal); R45.851 Suicidal ideations; G89.3 Neoplasm related pain (acute) (chronic); C14.0 Malignant neoplasm of pharynx, unspecified; E87.1 Hypo-osmolality and hyponatremia; I10 Essential (primary) hypertension; R51 Headache; R13.10 Dysphagia, unspecified; F17.200 Nicotine dependence, unspecified, uncomplicated; R22.1 Localized swelling, mass and lump, neck; Z79.899 Other long term (current) drug therapy; Z97.8 Presence of other specified devices; Z92.3 Personal history of irradiation; Z92.21 Personal history of antineoplastic chemotherapy; Z90.81 Acquired absence of spleen; Z90.5 Acquired absence of kidney; Z66 Do not resuscitate; Z82.5 Family history of asthma and other chronic lower respiratory diseases
CPT/HCPCS: 96376 ×3; 96365; 96366; 96375 ×2; 96361; 99285; 36415; 93005; 97162; 97166; 80053; 80048; 82550; 83735; 84100; 84484; 85025; 85027; 85610; 85730; 80306; 70490; G0378 ×2; G0480; J2270 ×2; J1100; J1170 ×2; 80320

== ENCOUNTER 2019-12-12 16:10 | Inpatient (IN) | payer OTHER ==
[2019-12-12] MEDS ORDERED: IPRATROPIUM-ALBUTEROL 3 ML NEB INHALATION STA (16:31)
[2019-12-12] MEDS ORDERED: HYDROmorphone 0.5 MG/0.5 ML SYRINGE IVP STA (16:31)
[2019-12-12] MEDS ORDERED: SODIUM CHLORIDE 0.9% 500 ML 500 ML IV ONE (16:32)
[2019-12-12 17:09] LABS: Basophils % (A) 1 %; Eosinophils # (A) 0.1 k/uL (0-0.7); Eosinophils % (A) 2 %; HCT 39.6 % (39.0-53.0); HGB 12.9 gm/dL (13.0-17.5); Lymphocytes # (A) 1.4 k/uL (1.0-4.8); Lymphocytes % (A) 24 %; MCH 32.5 pg (25.0-35.0); MCHC 32.7 g/dL (31.0-37.0); MCV 99.3 fL (80.0-100.0); Mean Platelet Volume 8.1; Monocytes # (A) 0.5 k/uL (0-1.0); Monocytes % (A) 9 %; Neutrophils # (A) 3.5 k/uL (1.3-7.7); Neutrophils % (A) 61 %; Platelet Count 334 k/uL (150-450); RBC 3.99 m/uL (4.30-5.90); WBC 5.7 k/uL (3.8-10.6)
[2019-12-12 17:21] LABS: ALT 11 U/L (4-49); AST 31 U/L (17-59); African American GFR (CKD) >90 (>60 ml/min/1.73 sqM); Albumin 4.8 g/dL (3.5-5.0); Alkaline Phosphatase 58 U/L (38-126); Anion Gap 12 mmol/L; Blood Urea Nitrogen 26 mg/dL (9-20); Calcium 9.6 mg/dL (8.4-10.2); Carbon Dioxide 27 mmol/L (22-30); Chloride 94 mmol/L (98-107); Glucose 78 mg/dL (74-99); Magnesium 2.1 mg/dL (1.6-2.3); Non-African American GFR(CKD) >90 (>60 ml/min/1.73 sqM); Potassium 4.4 mmol/L (3.5-5.1); Sodium 133 mmol/L (137-145); Total Bilirubin 0.3 mg/dL (0.2-1.3); Total Protein 7.6 g/dL (6.3-8.2)
--- NOTE | 2019-12-12 18:14 | ED ---
General Adult HPI - General Chief complaint: Shortness of Breath Stated complaint: SOB Time Seen by Provider: 12/12/19 16:11 Source: EMS, RN notes reviewed, old records reviewed Mode of arrival: EMS Limitations: no limitations - History of Present Illness Initial comments: 64-year-old male patient past medical history of throat cancer who had a oropharyngeal mass that is at this point not being treated presents ED for chief complaint of shortness of breath. He states that the last 2 days he is having shortness of breath and some pain in his left posterior shoulder region. Patient is denying pain in any other areas. Denies any anterior chest pain. Denies any abdominal pain nausea vomiting or diarrhea. - Related Data Home Medications Medication Instructions Recorded Confirmed No Known Home Medications 12/12/19 12/12/19 Allergies Allergy/AdvReac Type Severity Reaction Status Date / Time No Known Allergies Allergy Verified 12/12/19 18:37 Review of Systems ROS Statement: Those systems with pertinent positive or pertinent negative responses have been documented in the HPI. ROS Other: All systems not noted in ROS Statement are negative. Past Medical History Past Medical History: Hypertension Additional Past Medical History / Comment(s): throat ca History of Any Multi-Drug Resistant Organisms: None Reported Additional Past Surgical History / Comment(s): left kidney removed, spleen surgery Past Psychological History: No Psychological Hx Reported Past Alcohol Use History: Abuse Past Drug Use History: Marijuana - Past Family History Mother Family Medical History: COPD General Exam - General Exam Comments Initial Comments: Constitutional: NAD, AOX3, Pt has pleasant affect. HEENT: NC/AT, trachea midline, neck supple, no lymphadenopathy. Oropharyngeal mass noted. External ears appear normal, without discharge. Mucous membranes moist. Eyes PERRLA, EOM intact. There is no scleral icterus. No pallor noted. Cardiopulmonary: RRR, no murmurs, rubs or gallops, no JVD noted. Lungs CTAB in anterior and posterior hudson. No peripheral edema. Abdominal exam: Abdomen soft and non-distended. Abdomen non-tender to palpation in all 4 quadrants. Bowel sounds active in LLQ. No hepatosplenomegaly. No ecchymosis Neuro: CN II-XII grossly intact. No nuchal rigidity. No raccon eyes, no bruno sign, no hemotympanum. No cervical spinal tenderness. MSK: No posterior calf tenderness bilaterally, homans sign negative bilaterally. Full active ROM in upper and lower extremities, 5/5 stregnth. Limitations: no limitations Course Vital Signs 12/12/19 12/12/19 12/12/19 16:11 16:17 17:00 Temperature 97.3 F L Pulse Rate 75 68 Respiratory 18 20 Rate Blood Pressure 151/83 O2 Sat by Pulse 100 Oximetry 12/12/19 12/12/19 12/12/19 17:07 17:14 17:30 Temperature Pulse Rate 78 72 76 Respiratory 18 16 Rate Blood Pressure 144/82 144/82 O2 Sat by Pulse 98 100 Oximetry 12/12/19 18:00 Temperature Pulse Rate 80 Respiratory 14 Rate Blood Pressure O2 Sat by Pulse 97 Oximetry Medical Decision Making - Medical Decision Making 64-year-old male patient past medical history of throat cancer who had a oropharyngeal mass that is at this point not being treated presents ED for chief complaint of shortness of breath. He states that the last 2 days he is having shortness of breath and some pain in his left posterior shoulder region. Patient is denying pain in any other areas. Denies any anterior chest pain. Denies any abdominal pain nausea vomiting or diarrhea. Pt VSS, afebrile. Physical exam displayed orpharyngeal mass. Airway is protected. CTA displayed possible early pneumonia with indeterminate esophageal thickening. Patient will be admitted the hospital for possible early aspiration pneumonia. Case discussed with Dr. Chiu. - Lab Data Result diagrams: 12/12/19 17:00 12/12/19 17:00 Lab Results 12/12/19 12/12/19 12/12/19 Range/Units 17:00 17:00 17:00 WBC 5.7 (3.8-10.6) k/uL RBC 3.99 L (4.30-5.90) m/uL Hgb 12.9 L (13.0-17.5) gm/dL Hct 39.6 (39.0-53.0) % MCV 99.3 (80.0-100.0) fL MCH 32.5 (25.0-35.0) pg MCHC 32.7 (31.0-37.0) g/dL RDW 14.0 (11.5-15.5) % Plt Count 334 (150-450) k/uL Neutrophils % 61 % Lymphocytes % 24 % Monocytes % 9 % Eosinophils % 2 % Basophils % 1 % Neutrophils # 3.5 (1.3-7.7) k/uL Lymphocytes # 1.4 (1.0-4.8) k/uL Monocytes # 0.5 (0-1.0) k/uL Eosinophils # 0.1 (0-0.7) k/uL Basophils # 0.0 (0-0.2) k/uL Sodium 133 L (137-145) mmol/L Potassium 4.4 (3.5-5.1) mmol/L Chloride 94 L (98-107) mmol/L Carbon Dioxide 27 (22-30) mmol/L Anion Gap 12 mmol/L BUN 26 H (9-20) mg/dL Creatinine 0.80 (0.66-1.25) mg/dL Est GFR (CKD-EPI)AfAm >90 (>60 ml/min/1.73 sqM) Est GFR (CKD-EPI)NonAf >90 (>60 ml/min/1.73 sqM) Glucose 78 (74-99) mg/dL Calcium 9.6 (8.4-10.2) mg/dL Magnesium 2.1 (1.6-2.3) mg/dL Total Bilirubin 0.3 (0.2-1.3) mg/dL AST 31 (17-59) U/L ALT 11 (4-49) U/L Alkaline Phosphatase 58 (38-126) U/L Troponin I <0.012 (0.000-0.034) ng/mL Total Protein 7.6 (6.3-8.2) g/dL Albumin 4.8 (3.5-5.0) g/dL Disposition Clinical Impression: Aspiration pneumonia Disposition: ADMITTED IP TO THIS HOSP Condition: Serious Is patient prescribed a controlled substance at d/c from ED?: No Referrals: None,Stated [Primary Care Provider] - 1-2 days
--- NOTE | 2019-12-12 18:17 | CT ---
EXAMINATION TYPE: CT chest angio for PE DATE OF EXAM: 12/12/2019 COMPARISON: HISTORY: Dyspnea, chest pain CT DLP: 315.1 mGycm Automated exposure control for dose reduction was used. CONTRAST: CT Chest for pulmonary embolism performed with with IV Contrast, patient injected with 80 mL of Isovu e 370. Three-dimensional reconstructions on an alternate workstation. FINDINGS: There is a linear metallic density present along the lateral aspect of the esophagus in the upper thoracic region. LUNGS: The lungs are grossly clear, there is no concerning parenchymal mass or nodule identified. Th ere is emphysematous change within the lungs. Some minimal patchy groundglass opacities scattered wit hin the right upper lobe. There is no pleural effusion or pneumothorax seen. The tracheobronchial tr ee is patent. MEDIASTINUM: There is satisfactory enhancement of the pulmonary artery and its branches, there is no CT evidence for pulmonary embolism. There are no greater than 1 cm hilar or mediastinal lymph nodes. Pulmonary artery mildly dilated, consider pulmonary artery hypertension. No pericardial effusion is seen. There are coronary calcifications. AORTA: Root of the aorta measures 4 cm. OTHER: Left kidney is not seen. The esophagus appears somewhat thickened distally. IMPRESSION: Aortic aneurysm, coronary artery disease, consider pulmonary hypertension. Difficult to exclude early pneumonia or edema within the right lung. Indeterminate esophageal thickening, consider follow-up, d ifficult to exclude a mucosal lesion
[2019-12-12] MEDS ORDERED: PIPERACILLIN-TAZOBACTAM 3.375 GM in SODIUM CHLORIDE 0.9% 100 ML IVPB STA (18:36)
[2019-12-12] MEDS ORDERED: LEVOFLOXACIN 750MG-D5W PMX 750 MG in DEXTROSE/WATER 1 150ML.BAG IVPB STA (19:05)
[2019-12-12] MEDS ORDERED: NALOXONE 0.4 MG/ML 1 ML VIAL IV PRN (19:10)
--- NOTE | 2019-12-12 19:13 | ED ---
Medical Decision Making - Lab Data Result diagrams: 12/12/19 17:00 12/12/19 17:00 Lab Results 12/12/19 12/12/19 12/12/19 Range/Units 17:00 17:00 17:00 WBC 5.7 (3.8-10.6) k/uL RBC 3.99 L (4.30-5.90) m/uL Hgb 12.9 L (13.0-17.5) gm/dL Hct 39.6 (39.0-53.0) % MCV 99.3 (80.0-100.0) fL MCH 32.5 (25.0-35.0) pg MCHC 32.7 (31.0-37.0) g/dL RDW 14.0 (11.5-15.5) % Plt Count 334 (150-450) k/uL Neutrophils % 61 % Lymphocytes % 24 % Monocytes % 9 % Eosinophils % 2 % Basophils % 1 % Neutrophils # 3.5 (1.3-7.7) k/uL Lymphocytes # 1.4 (1.0-4.8) k/uL Monocytes # 0.5 (0-1.0) k/uL Eosinophils # 0.1 (0-0.7) k/uL Basophils # 0.0 (0-0.2) k/uL Sodium 133 L (137-145) mmol/L Potassium 4.4 (3.5-5.1) mmol/L Chloride 94 L (98-107) mmol/L Carbon Dioxide 27 (22-30) mmol/L Anion Gap 12 mmol/L BUN 26 H (9-20) mg/dL Creatinine 0.80 (0.66-1.25) mg/dL Est GFR (CKD-EPI)AfAm >90 (>60 ml/min/1.73 sqM) Est GFR (CKD-EPI)NonAf >90 (>60 ml/min/1.73 sqM) Glucose 78 (74-99) mg/dL Calcium 9.6 (8.4-10.2) mg/dL Magnesium 2.1 (1.6-2.3) mg/dL Total Bilirubin 0.3 (0.2-1.3) mg/dL AST 31 (17-59) U/L ALT 11 (4-49) U/L Alkaline Phosphatase 58 (38-126) U/L Troponin I <0.012 (0.000-0.034) ng/mL Total Protein 7.6 (6.3-8.2) g/dL Albumin 4.8 (3.5-5.0) g/dL - EKG Data -: EKG Interpreted by Me (and Dr. Chiu) EKG Comments: Ventricular rate 82, NJ interval 140, QRS 92, QT/QTc 416/46. Normal sinus rhythm, voltage criteria for left ventricular hypertrophy. Possible lateral infarct age indeterminate possible inferior infarct age indeterminate. Disposition Clinical Impression: Aspiration pneumonia Disposition: ADMITTED IP TO THIS HOSP Condition: Serious Is patient prescribed a controlled substance at d/c from ED?: No Referrals: None,Stated [Primary Care Provider] - 1-2 days
[2019-12-12] MEDS: HYDROmorphone 0.5 MG/0.5 ML SYRINGE IVP PRN (20:26)
[2019-12-12] MEDS: PIPERACILLIN-TAZOBACTAM 3.375 GM in SODIUM CHLORIDE 0.9% 100 ML IVPB SCH (23:37)
[2019-12-13] MEDS: HYDROmorphone 0.5 MG/0.5 ML SYRINGE IVP PRN ×3 (05:45→16:08)
[2019-12-13] MEDS: PIPERACILLIN-TAZOBACTAM 3.375 GM in SODIUM CHLORIDE 0.9% 100 ML IVPB SCH (08:12)
--- NOTE | 2019-12-13 11:39 | P.HPIM ---
History of Present Illness this is a pleasant 64 years old malewith past medical history of hypertension, throat cancer status post surgical resection at [facility] and status post tracheostomy and PEG tube placement, left nephrectomy, presents be cause of dyspnea. Patient cannot talk, however he can understand in pat[place] and Also Information Was Taken from the Daughter Ms. Salazar whom I Called. Patient lives with his daughter Martin and he came because of dyspnea of 1-2 days duration. As per daughter he stopped following Up with his oncologist and throat surgeon at [facility], she thinks it is because of lack of transportation, the daughter has difficulty taking care of him because she has a big family and she is sick herself for example hernia. She states that patient keep smoking and drinking alcohol via PEG tube daily Also daughter states that since surgery he cannot talk and there is bulging below his tongue which is not a new However when I saw the patient this morning he was lying in bed comfortable, no respiratory distress, not tachypneic, he is not coughing, he is not using his accessory musclesand he was saturating 95-100% on 2 L oxygen via nasal cannula. He is afebrile, rest of vital signs stable. Labs showing no leukocytosis, rest of CBC and BMP and liver enzymes were unremarkable, serial troponins 3 are negative. EKGshowing normal sinus rhythm with no significant ST-T changes. CT angio of the lung: No PE,some scattered minimal patchy ground glass opacity in the right upper lobe, root of the aorta is 4 cm, thickened esophagus distally Review of Systems CONSTITUTIONAL: No fever, no malaise, no fatigue. HEENT: No recent visual problems or hearing problems. Denied any sore throat. CARDIOVASCULAR: No orthopnea, PND, no palpitations, no syncope. PULMONARY: no hemoptysis. GASTROINTESTINAL: No diarrhea, no nausea, no vomiting, no abdominal pain. Normoactive bowel sounds. NEUROLOGICAL: No headaches, no weakness, no numbness. HEMATOLOGICAL: Denies any bleeding or petechiae. GENITOURINARY: Denies any burning micturition, frequency, or urgency. MUSCULOSKELETAL/RHEUMATOLOGICAL: Denies any joint pain, swelling, or any muscle pain. ENDOCRINE: Denies any polyuria or polydipsia. Past Medical History Past Medical History: Hypertension Additional Past Medical History / Comment(s): throat ca History of Any Multi-Drug Resistant Organisms: None Reported Additional Past Surgical History / Comment(s): left kidney removed, spleen surgery Past Anesthesia/Blood Transfusion Reactions: No Reported Reaction Past Psychological History: No Psychological Hx Reported Smoking Status: Current every day smoker Past Alcohol Use History: Abuse Past Drug Use History: Marijuana - Past Family History Mother Family Medical History: COPD Medications and Allergies Home Medications Medication Instructions Recorded Confirmed Type No Known Home Medications 12/12/19 12/12/19 History Allergies Allergy/AdvReac Type Severity Reaction Status Date / Time No Known Allergies Allergy Verified 12/12/19 18:37 Physical Exam Vitals: Vital Signs Temp Pulse Pulse Resp BP BP BP 12/13/19 07:00 98.4 F 72 18 143/79 12/13/19 00:58 97.0 F L 75 16 160/82 12/12/19 20:40 96.8 F L 81 16 112/67 12/12/19 20:31 96.5 F L 76 16 115/60 12/12/19 19:36 75 16 128/72 12/12/19 19:05 72 18 112/70 12/12/19 18:00 80 14 12/12/19 17:30 76 16 144/82 12/12/19 17:14 72 18 144/82 12/12/19 17:07 78 12/12/19 17:00 68 12/12/19 16:17 20 12/12/19 16:11 97.3 F L 75 18 151/83 Pulse Ox 12/13/19 07:00 95 12/13/19 00:58 100 12/12/19 20:40 98 12/12/19 20:31 93 L 12/12/19 19:36 97 12/12/19 19:05 98 12/12/19 18:00 97 12/12/19 17:30 100 12/12/19 17:14 98 12/12/19 17:07 12/12/19 17:00 12/12/19 16:17 12/12/19 16:11 100 Intake and Output 12/12/19 12/13/19 12/13/19 22:59 06:59 14:59 Output Total 600 450 Balance -600 -450 Output: Urine 600 450 Other: Voiding Method Urinal # Voids 1 2 Weight 70.307 kg -GENERAL: The patient is alert and answer questions appropriately by handwriting or BY nodding his head, not in any acute distress. Well developed, well nourished. patient cannot talk on provide information -HEENT: Pupils are round and equally reacting to light. EOMI. No scleral icterus. No conjunctival pallor. Normocephalic, atraumatic. No pharyngeal erythema. No thyromegaly. bulging below midline chin, ( the daughter states that it is chronic since he had his throat surgery), tracheostomy is in place CARDIOVASCULAR: S1 and S2 present. No murmurs, rubs, or gallops. PULMONARY: Chest is clear to auscultation, no wheezing or crackles. -ABDOMEN: Soft, nontender, nondistended, normoactive bowel sounds. No palpable organomegaly. PEG tube is in place MUSCULOSKELETAL: No joint swelling or deformity. EXTREMITIES: No cyanosis, clubbing, or pedal edema. NEUROLOGICAL: Gross neurological examination did not reveal any focal deficits. SKIN: No rashes. No petechiae Results CBC & Chem 7: 12/12/19 17:00 12/12/19 17:00 Labs: Abnormal Lab Results - Last 24 Hours (Table) 12/12/19 12/12/19 Range/Units 17:00 17:00 RBC 3.99 L (4.30-5.90) m/uL Hgb 12.9 L (13.0-17.5) gm/dL Sodium 133 L (137-145) mmol/L Chloride 94 L (98-107) mmol/L BUN 26 H (9-20) mg/dL Thrombosis Risk Factor Assmnt - Choose All That Apply Each Risk Factor Represents 2 Points: Age 61-74 years Thrombosis Risk Factor Assessment Total Risk Factor Score: 2 Thrombosis Risk Factor Assessment Level: Low Risk Assessment and Plan Assessment: -throat cancer status post surgical resection at [facility] and status post tracheostomy and PEG tube -Suspicion for aspiration pneumonia however patient with no fever or leukocytosis, discontinue Levaquin and discontinue with Zosyn for now, switched to oral antibiotic -Thickened esophagus distally -hypertension -nicotine dependence -Alcohol abuse -Aortic aneurysm Plan: this is a pleasant 64 years old male who presents with throat cancer And dyspnea suspicious for aspiration pneumonia, however patient has no fever or leukocytosis. stop Levaquin and Zosyn and switch to Augmentin through the PEG tube. Oncology consult for his history of throat cancer and thick esophagus distally, start the patient on Ativan as needed and thiamine, he refused nicotine patch also patient wants to switch his service to Dr. Lowery, instructed Staff to contact the office Labs and medication were reviewed.. Continue same treatment. Continue with symptomatic treatment. Resume home medication. Monitor lytes and vitals. DVT and GI prophylaxis. Further recommendations of the clinical course of the patient DVT prophylaxis: Subcutaneous heparin GI Prophylaxis: Pepcid Prognosis is guarded
--- NOTE | 2019-12-13 12:28 | P.CONS ---
History of Present Illness - Reason for Consult Consult date: 12/13/19 laryngeal Carcinoma Requesting physician: Enrique Rodríguez - Chief Complaint Shortness of Breath - History of Present Illness Mr. Ho is a pleasant male who is well known to our practice for treatment of his laryngeal carcinoma. Primary oncologist was Dr. Verma, although he was last seen 2016 and has not returned as he has been following with [facility] per his daughter In January 2015 he originally presented persistent sore throat and intermittent hoarsness. He did not seek medical attention until April of that year and at that time a CT scan of the neck was ordered and revealed 1.7x1.3x1.5cm left epiglottic mass,otherwise negative. On 05/13/2015,PET scan revealed suspicious uptake in left epiglottis,single small left cervical node with SUV of 4 and prominent hilar and mediastinal nodes with SUV of 4. 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 His work up was done at [facility]. Repeat CT scan of chest on 07/24/2015 as follow up on bordeline hilar nodes which came back negative and was evaluated by Dr Land in that regard and felt to be inflammatory. U/S guided FNA of left cervical node was positive for metastatic squamous cell carcinoma. He started concurrent cisplatin every 3 weeks with radiation therapy on 08/25/2015. He completed 3 cycles of cisplatin concurrent with XRT on 10/12/2015. On 10/25/2015,CT scan of neck and chest revealed no evidence of disease. On 05/10/2016,CT scan of neck and chest was negative for recurrence,some effacement of vocal cord,could not get him to see ENT He was last seen in May of [address] Verma and at that time continued to have dryness in his mouth,odynophagia and dysphagia,he continues to smoke,he takes percocet about 2-3 times/day for his odynophagia In Other past medical history of hypertension, throat cancer status post surgical resection at [facility] and status post tracheostomy and PEG tube placement, left nephrectomy, presents because of dyspnea. Patient does not speak, however he can understand and writes on pad paper. Patient lives with his daughter, per daughter he stopped following Up with his oncologist and throat surgeon at [facility], because of lack of transportation. Patient continues to smoking and drink alcohol via PEG tube daily. He now presents to hospital with increased shortness of breath. CTA did not show Pulm Embolism, but could not exclude aspiration pneumonia in which he is currently being treated. Review of Systems A 14 point review of systems assessed and completed and all negative except HPI Past Medical History Past Medical History: Hypertension Additional Past Medical History / Comment(s): throat ca History of Any Multi-Drug Resistant Organisms: None Reported Additional Past Surgical History / Comment(s): left kidney removed, spleen surgery Past Anesthesia/Blood Transfusion Reactions: No Reported Reaction Past Psychological History: No Psychological Hx Reported Smoking Status: Current every day smoker Past Alcohol Use History: Abuse Past Drug Use History: Marijuana - Past Family History Mother Family Medical History: COPD Medications and Allergies Home Medications Medication Instructions Recorded Confirmed Type No Known Home Medications 12/12/19 12/12/19 History Allergies Allergy/AdvReac Type Severity Reaction Status Date / Time No Known Allergies Allergy Verified 12/12/19 18:37 Physical Exam Vitals: Vital Signs Temp Pulse Pulse Resp BP BP BP 12/13/19 07:00 98.4 F 72 18 143/79 12/13/19 00:58 97.0 F L 75 16 160/82 12/12/19 20:40 96.8 F L 81 16 112/67 12/12/19 20:31 96.5 F L 76 16 115/60 12/12/19 19:36 75 16 128/72 12/12/19 19:05 72 18 112/70 12/12/19 18:00 80 14 12/12/19 17:30 76 16 144/82 12/12/19 17:14 72 18 144/82 12/12/19 17:07 78 12/12/19 17:00 68 12/12/19 16:17 20 12/12/19 16:11 97.3 F L 75 18 151/83 Pulse Ox 12/13/19 07:00 95 12/13/19 00:58 100 12/12/19 20:40 98 12/12/19 20:31 93 L 12/12/19 19:36 97 12/12/19 19:05 98 12/12/19 18:00 97 12/12/19 17:30 100 12/12/19 17:14 98 12/12/19 17:07 12/12/19 17:00 12/12/19 16:17 12/12/19 16:11 100 Intake and Output 12/12/19 12/13/19 12/13/19 22:59 06:59 14:59 Output Total 600 450 Balance -600 -450 Output: Urine 600 450 Other: Voiding Method Urinal # Voids 1 2 Weight 70.307 kg 70.307 kg - Constitutional General appearance: cooperative, no acute distress - EENT Trach Eyes: poor dentition ENT: other - Neck Neck: lymphadenopathy - Respiratory Respiratory: right: rhonchi, bilateral: diminished - Cardiovascular Rhythm: regular Heart sounds: normal: S1, S2 - Gastrointestinal Peg tube General gastrointestinal: normal bowel sounds, soft - Integumentary Integumentary: pale - Neurologic non focal - Musculoskeletal Musculoskeletal: strength equal bilaterally - Psychiatric Psychiatric: A&O x's 3, appropriate affect, intact judgment & insight Results CBC & Chem 7: 12/12/19 17:00 12/12/19 17:00 Labs: Abnormal Lab Results - Last 24 Hours (Table) 12/12/19 12/12/19 Range/Units 17:00 17:00 RBC 3.99 L (4.30-5.90) m/uL Hgb 12.9 L (13.0-17.5) gm/dL Sodium 133 L (137-145) mmol/L Chloride 94 L (98-107) mmol/L BUN 26 H (9-20) mg/dL CT scan - chest: report reviewed Assessment and Plan (1) Laryngeal squamous cell carcinoma Current Visit: Yes Status: Acute Code(s): C32.9 - MALIGNANT NEOPLASM OF LARYNX, UNSPECIFIED SNOMED Code(s): 601556823 (2) Aspiration pneumonia Current Visit: Yes Status: Acute Code(s): J69.0 - PNEUMONITIS DUE TO INHALATION OF FOOD AND VOMIT SNOMED Code(s): 279541605 Plan: Assessment and Recommendations: Aspiration Pneumonia: - Per Primary team and pulmonology Hx: Laryngeal Carcinoma: - Patient has been following with [facility], therefore it is unknown his current status of disease and what treatments where given from 2017 to present. I have requested these records to compare to current CTA for possible pr ogressive appearance. - Further recs once outside hospital records are obtained Physician Attest: I have completed full history and physical and agree with above dictation, dictated as a scribe
[2019-12-13] MEDS: AMOXIC-POT CLAV 875-125MG 1 EACH TAB PO SCH (12:49)
[2019-12-13] MEDS: THIAMINE 100 MG/ML 2 ML VIAL IVP SCH (12:49)
[2019-12-13] MEDS: HEPARIN SODIUM,PORCINE 5,000 UNIT/ML 1 ML VIAL SQ SCH (12:49)
[2019-12-13] MEDS: ONDANSETRON 4 MG/2 ML VIAL IVP PRN (14:58)
[2019-12-13] MEDS ORDERED: VANCOMYCIN IV PER PHARMACY 1 EACH MISC MISCELLANE PRN (16:48)
[2019-12-13] MEDS: VANCOMYCIN 1,250 MG in SODIUM CHLORIDE 0.9% 250 ML IVPB SCH (17:54)
[2019-12-13] MEDS ORDERED: LEVOFLOXACIN 750MG-D5W PMX 750 MG in DEXTROSE/WATER 1 150ML.BAG IVPB SCH (19:00)
[2019-12-14] MEDS: AMOXIC-POT CLAV 875-125MG 1 EACH TAB PO SCH ×5 (00:11→20:57)
[2019-12-14] MEDS: HEPARIN SODIUM,PORCINE 5,000 UNIT/ML 1 ML VIAL SQ SCH ×4 (00:11→20:58)
[2019-12-14] MEDS: FAMOTIDINE 20 MG/2 ML VIAL IV SCH ×3 (00:11→20:56)
[2019-12-14] MEDS: HYDROmorphone 0.5 MG/0.5 ML SYRINGE IVP PRN ×5 (01:51→20:57)
[2019-12-14] MEDS: ONDANSETRON 4 MG/2 ML VIAL IVP PRN ×2 (01:51→08:34)
[2019-12-14] MEDS: VANCOMYCIN 1,250 MG in SODIUM CHLORIDE 0.9% 250 ML IVPB SCH ×3 (01:52→18:03)
[2019-12-14] MEDS: THIAMINE 100 MG/ML 2 ML VIAL IVP SCH (08:35)
[2019-12-14 09:56] LABS: African American GFR (CKD) >90 (>60 ml/min/1.73 sqM); Blood Urea Nitrogen 18 mg/dL (9-20); Non-African American GFR(CKD) >90 (>60 ml/min/1.73 sqM)
--- NOTE | 2019-12-14 13:59 | CT ---
EXAMINATION TYPE: CT soft tissue neck wo/w con DATE OF EXAM: 12/14/2019 12:15 PM COMPARISON: Previous study dated 11/13/2018. HISTORY: history of CA of neck and brain CT DLP: 456.6 mGycm Automated exposure control for dose reduction was used. CONTRAST: CT scan of the neck is performed following without and with IV Contrast, patient injected with 100 mL of Isovue 300. Axial images are obtained, coronal and sagittal reformatted images are reviewed. FINDINGS: Visualized intracranial structures are unremarkable. There is mild mucoperiosteal thickening involving the maxillary sinuses bilaterally. There is been previous sideplate fixation of the ramus of the right side of the mandible and also the body of the left side of the mandible. There is an interposition graft which is similar to on the ri ght but not assimilated on the left. Overall soft tissues fullness surrounding this region has decrea sed from previous. The parapharyngeal, oropharyngeal and laryngeal soft tissues appear unremarkable. There is a right pa ratracheal adenopathy with the largest lymph node being 8 mm. There is extensive calcification of the right carotid bulb. There are extensive postsurgical clips. No gross tumoral recurrence is seen. No contrast was given to assess abnormal enhancement. Visualized portions of the lungs are clear. There is a thoracic aortic aneurysm with the proximal arch measuring 3.7 cm in the proximal descendin g thoracic aorta measuring 31.5 mm. Vertebral body height and alignment are maintained. There is disc space loss and hypertrophic spondyl osis at C5-6 and C6-7 and to a lesser extent C4-5. The uncovertebral joints and facets appear reasona alonzo well-maintained. No definite protrusion is seen. IMPRESSION: 1. SUBOPTIMAL EXAMINATION SECONDARY TO LACK OF CONTRAST. 2. EXTENSIVE POSTSURGICAL CHANGE. 3. NO GROSS TUMORAL RECURRENCE. 4. THORACIC AORTIC ANEURYSM. 5. CHRONIC MAXILLARY SINUS MUCOSAL DISEASE. 6. DEGENERATIVE CHANGES WITHIN THE CERVICAL SPINE.
[2019-12-14] MEDS ORDERED: VANCOMYCIN TROUGH DUE 1 EACH MISC MISCELLANE ONE (17:00)
[2019-12-15] MEDS: HYDROmorphone 0.5 MG/0.5 ML SYRINGE IVP PRN ×8 (00:05→21:05)
[2019-12-15] MEDS ORDERED: VANCOMYCIN 1,000 MG in SODIUM CHLORIDE 0.9% 250 ML IVPB SCH (08:00)
[2019-12-15] MEDS: THIAMINE 100 MG/ML 2 ML VIAL IVP SCH (08:19)
[2019-12-15] MEDS: FAMOTIDINE 20 MG/2 ML VIAL IV SCH ×2 (08:19→21:07)
[2019-12-15] MEDS: AMOXIC-POT CLAV 875-125MG 1 EACH TAB PO SCH (08:19)
[2019-12-15] MEDS: HEPARIN SODIUM,PORCINE 5,000 UNIT/ML 1 ML VIAL SQ SCH ×2 (08:20→21:07)
--- NOTE | 2019-12-15 09:46 | P.CONS ---
History of Present Illness - Reason for Consult Consult date: 12/14/19 Bacteremia Requesting physician: Duarte E Sheet - Chief Complaint Shortness of breath 2 days - History of Present Illness Patient is a 64-year-old male with a past medical history significant for laryngeal cancer in this patient with status post surgical resection tracheostomy and PEG tube and has been following at [facility] for chemo however lately has not been following because of medical transportation patient continued to smoke and drink alcoholic through PEG tube patient has been brought to the hospital for evaluation of increasing shortness of breath that apparently has been getting worse for the last 2 days before the patient has been brought to the hospital patient on arrival to the ER has been afebrile he did not have a significantly elevated white count patient did have a CT angiogram that did not show any PE however did show right lower lobe infiltrate concerning for pneumonia patient did have blood culture drawn and is familiar positive with gram-positive cocci for the patient was started on vancomycin pharmacy to dose and Effexor did have been positive for further management of antibiotic therapy most information has been obtained from review the chart as patient unable to afford any history but also some simple questions with nodding of his head patient currently do not have any open wound as per the nursing staff Review of Systems Positive points has been mentioned in HPI complete review could not be obtained because of his underlying mental status Past Medical History Past Medical History: Hypertension Additional Past Medical History / Comment(s): throat ca History of Any Multi-Drug Resistant Organisms: None Reported Additional Past Surgical History / Comment(s): left kidney removed, spleen surgery Past Anesthesia/Blood Transfusion Reactions: No Reported Reaction Past Psychological History: No Psychological Hx Reported Smoking Status: Current every day smoker Past Alcohol Use History: Abuse Past Drug Use History: Marijuana - Past Family History Mother Family Medical History: COPD Medications and Allergies Home Medications Medication Instructions Recorded Confirmed Type No Known Home Medications 12/12/19 12/12/19 History Allergies Allergy/AdvReac Type Severity Reaction Status Date / Time No Known Allergies Allergy Verified 12/12/19 18:37 Physical Exam Vitals: Vital Signs Temp Pulse Resp BP BP Pulse Ox 12/14/19 07:00 98.0 F 73 20 118/69 91 L 12/14/19 04:00 18 12/14/19 01:10 98.2 F 67 20 129/65 96 12/14/19 00:11 17 12/13/19 22:21 97.2 F L 73 20 158/80 93 L 12/13/19 20:00 20 12/13/19 15:00 98.4 F 100 18 146/80 93 L Intake and Output 12/13/19 12/14/19 12/14/19 22:59 06:59 14:59 Intake Total 0 320 Balance 0 320 Intake: Oral 0 Tube Feeding 320 Other: Voiding Method Urinal Urinal # Voids 1 # Bowel Movements 0 Weight 56.6 kg GENERAL DESCRIPTION: Middle-aged male lying in bed, no distress. No tachypnea or accessory muscle of respiration use. HEENT: Shows Pallor , no scleral icterus. Oral mucous membrane is dry. No pharyngeal erythema or thrush NECK: Trachea central, no thyromegaly. LUNGS: Unlabored breathing. Decreased breath sounds at the base. No wheeze or crackle. HEART: S1, S2, regular rate and rhythm. No loud murmur ABDOMEN: Soft, peg site with no cellulitis, no tenderness , guarding or rigidity, no organomegaly EXTREMITIES: No edema of feet. SKIN: No rash, no masses palpable. NEUROLOGICAL: The patient is awake, alert, unable to communicate orientation could not be determined Results CBC & Chem 7: 12/12/19 17:00 12/14/19 09:30 Labs: Abnormal Lab Results - Last 24 Hours (Table) 12/13/19 Range/Units 17:21 Plasma Lactic Acid Brent 0.6 L (0.7-2.0) mmol/L Microbiology - Last 24 Hours (Table) 12/12/19 19:04 Blood Culture Gram Stain - Preliminary Blood Blood Culture - Preliminary Coagulase Negative Staph 12/12/19 19:04 Blood Culture - Final Blood Assessment and Plan Assessment: 1- patient presented to hospital with increasing shortness of breath which is likely multifactorial in this patient with likely COPD exacerbation with check of bronchitis underlying right lower lobe possible aspiration pneumonia not entirely excluded in this patient who did have a history of laryngeal cancer 2- positive blood culture with the gram-positive cocci which has been finalized as coagulase negative staph likely skin contaminant as the patient has no clinical disease to go along with it (1) Bacteremia, coagulase-negative staphylococcal Current Visit: Yes Status: Acute Code(s): R78.81 - BACTEREMIA; B95.7 - OTH STAPHYLOCOCCUS THE CAUSE OF DISEASES CLASSD [id number] SNOMED Code(s): 719011046616 (2) Aspiration pneumonia Current Visit: Yes Status: Acute Code(s): J69.0 - PNEUMONITIS DUE TO INHALATION OF FOOD AND VOMIT SNOMED Code(s): 544973813 Plan: 1- repeat blood cultures 1, check a CBC and CRP and a pro-calcitonin 2- discontinue the vancomycin and Augmentin 3- step the patient on Unasyn 3 g every 6 hours We will follow on clinical condition and cultures to further adjust medication if needed Thank you for this consultation will follow this patient with you Time with Patient: Greater than 30
[2019-12-15 10:10] LABS: Potassium 4.5 mmol/L (3.5-5.1)
[2019-12-15 10:13] LABS: African American GFR (CKD) >90 (>60 ml/min/1.73 sqM); Anion Gap 6 mmol/L; Blood Urea Nitrogen 17 mg/dL (9-20); C Reactive Protein 82.2 mg/L (<10.0); Carbon Dioxide 30 mmol/L (22-30); Chloride 101 mmol/L (98-107); Glucose 88 mg/dL (74-99); Non-African American GFR(CKD) >90 (>60 ml/min/1.73 sqM); Sodium 137 mmol/L (137-145)
[2019-12-15 10:44] LABS: Basophils # (A) 0.1 k/uL (0-0.2); Basophils % (A) 1 %; Eosinophils # (A) 0.4 k/uL (0-0.7); Eosinophils % (A) 4 %; HCT 37.3 % (39.0-53.0); HGB 11.5 gm/dL (13.0-17.5); Hypochromasia Slight; Lymphocytes # (A) 0.9 k/uL (1.0-4.8); Lymphocytes % (A) 9 %; MCH 31.2 pg (25.0-35.0); MCHC 30.7 g/dL (31.0-37.0); MCV 101.7 fL (80.0-100.0); Macrocytosis Slight; Mean Platelet Volume 8.2; Monocytes # (A) 0.8 k/uL (0-1.0); Monocytes % (A) 8 %; Neutrophils # (A) 7.5 k/uL (1.3-7.7); Neutrophils % (A) 76 %; Platelet Count 304 k/uL (150-450); RBC 3.67 m/uL (4.30-5.90); RDW 13.9 % (11.5-15.5); WBC 9.9 k/uL (3.8-10.6)
[2019-12-15 14:02] VITALS: BMI 20.2
[2019-12-15] MEDS: AMPICILLIN-SULBACTAM 3 GM in SODIUM CHLORIDE 0.9% 100 ML IVPB SCH ×3 (17:01→23:27)
--- NOTE | 2019-12-15 23:11 | PN ---
PROGRESS NOTE DATE OF SERVICE: 12/14/2019 CHIEF COMPLAINT: Carcinoma of the throat and right lower lobe pneumonitis. HISTORY OF PRESENT ILLNESS: This gentleman is doing fairly well. His temperature has been down. Shortness of breath has not been a significant issue. PHYSICAL EXAMINATION: Breath sounds are poor on both sides. The cardiac exam is normal. Abdomen is soft. IMPRESSION: 1. Carcinoma of the throat. 2. Right lower lobe aspiration pneumonia. PLAN: Continue with updrafts, IV fluids and antibiotics. MMODL / IJN: [id number] /
--- NOTE | 2019-12-15 23:14 | PN ---
PROGRESS NOTE DATE OF SERVICE: 12/15/2019 CHIEF COMPLAINT: Carcinoma of the throat and aspiration pneumonia. HISTORY OF PRESENT ILLNESS: This gentleman is doing fairly well. He is awake and alert. He is afebrile. Plan is for him to continue with IV fluids and antibiotics as well as updrafts and will eventually be discharged back to his sister's care until he gets his own apartment. PHYSICAL EXAMINATION: There are scattered rales and rhonchi bilaterally. The cardiac exam is normal. The abdomen is soft, nontender. IMPRESSION: 1. Carcinoma of the throat. 2. Aspiration pneumonia. PLAN: Continue with current program and he could probably be discharged home soon. MMODL / IJN: [id number] /
[2019-12-16] MEDS: HYDROmorphone 0.5 MG/0.5 ML SYRINGE IVP PRN ×7 (00:10→22:11)
--- NOTE | 2019-12-16 00:17 | PN ---
PROGRESS NOTE DATE OF SERVICE: 12/15/2019 REASON FOR FOLLOWUP: 1. Positive blood culture. 2. Possible pneumonia. INTERVAL HISTORY: Patient is currently afebrile. The patient is more awake and alert today. He is breathing slightly comfortably. Did have some cough, but no sputum. No vomiting or diarrhea reported by nursing staff. PHYSICAL EXAMINATION: Blood pressure 165/81 with a pulse of 69, temperature is 97.9. He is 94% on room air. General description is a middle-aged male lying in bed in no distress. RESPIRATORY SYSTEM: Unlabored breathing, decreased breath sounds at the bases. No wheeze. HEART: S1, S2. Regular rate and rhythm. ABDOMEN: Soft, no tenderness. LABS: Hemoglobin 11.5, white count 9.9, BUN of 17, creatinine 0.78. Blood culture is Coagulase Negative Staph. DIAGNOSTIC IMPRESSION AND PLAN: 1. Patient followed up with blood culture of Coagulase Negative Staph likely skin contamination as the patient has no clinical disease to go along with it. Vancomycin discontinued. Blood cultures repeated to document clearance of bacteremia. 2. The patient with possible pneumonia covered with Unasyn, try to obtain a sputum. Continue supportive care. MMODL / IJN: [id number] /
[2019-12-16] MEDS: HYDROcodone/APAP 5-325MG 1 EACH TAB PEG/G-TUBE PRN ×2 (01:22→20:48)
[2019-12-16] MEDS: AMPICILLIN-SULBACTAM 3 GM in SODIUM CHLORIDE 0.9% 100 ML IVPB SCH ×3 (05:58→17:49)
[2019-12-16] MEDS: HEPARIN SODIUM,PORCINE 5,000 UNIT/ML 1 ML VIAL SQ SCH ×3 (08:03→20:59)
[2019-12-16] MEDS: THIAMINE 100 MG/ML 2 ML VIAL IVP SCH (08:04)
[2019-12-16] MEDS: FAMOTIDINE 20 MG/2 ML VIAL IV SCH ×2 (08:04→20:48)
--- NOTE | 2019-12-16 12:50 | PN ---
PROGRESS NOTE DATE OF SERVICE: 12/16/2019 REASON FOR FOLLOWUP: 1. Possible aspiration pneumonitis. 2. Positive blood culture, likely contamination. INTERVAL HISTORY: Patient is currently afebrile. The patient is breathing comfortably. Denies having any chest pain. Minimal cough. No vomiting. No abdominal pain. No diarrhea. PHYSICAL EXAMINATION: Blood pressure 172/83 with a pulse of 75, temperature 98.1, he is 96% on room air. Description is a middle-aged male lying in bed in no distress. Respiratory system: Unlabored breathing. Chest is clear to auscultation anteriorly. Heart S1, S2. Regular rate and rhythm. Abdomen is soft, no tenderness. LABS: Hemoglobin 9.1, white count 9.9, BUN of 17, creatinine 0.78. CRP elevated but white count normal. Blood culture show staph epidermidis. Repeat blood culture has been negative. DIAGNOSTIC IMPRESSION AND PLAN: 1. Patient with a positive blood culture with Staph epidermidis, more likely skin contamination. Repeat blood culture negative. No need for vancomycin. 2. Patient has shortness of breath with pulmonary infiltrate. We did consult for possible pneumonitis, on Unasyn. To continue to finish a short course of Augmentin. MMODL / IJN: [id number] /
--- NOTE | 2019-12-16 14:54 | P.PN ---
Subjective Progress Note Date: 12/16/19 Principal diagnosis: hx: head and neck Ca Objective - Vital Signs Vital signs: Vital Signs Temp 98.1 F 12/16/19 07:00 Pulse 75 12/16/19 07:00 Resp 18 12/16/19 07:00 BP 172/83 12/16/19 07:00 Pulse Ox 96 12/16/19 07:00 Intake & Output 12/15/19 12/16/19 12/16/19 18:59 06:59 18:59 Intake Total 450 640 100 Balance 450 640 100 Weight 57 kg Intake: Intake, IV Titration 100 100 Amount Ampicillin-Sulbactam 3 gm 100 100 In Sodium Chloride 0.9% 100 ml @ 200 mls/hr IVPB Q6HR NICKI Rx#:[id number] Tube Feeding 450 540 Other: Voiding Method Urinal Urinal # Voids 1 # Bowel Movements 0 - Exam - Constitutional General appearance: cooperative, no acute distress - EENT Trach Eyes: poor dentition ENT: other - Neck Neck: lymphadenopathy - Respiratory Respiratory: right: rhonchi, bilateral: diminished - Cardiovascular Rhythm: regular Heart sounds: normal: S1, S2 - Gastrointestinal Peg tube General gastrointestinal: normal bowel sounds, soft - Integumentary Integumentary: pale - Neurologic non focal - Musculoskeletal Musculoskeletal: strength equal bilaterally - Psychiatric Psychiatric: A&O x's 3, appropriate affect, intact judgment & insight - Labs CBC & Chem 7: 12/15/19 09:45 12/15/19 09:38 Labs: Microbiology - Last 24 Hours (Table) 12/15/19 09:45 Blood Culture - Preliminary Blood No Growth after 24 hours 12/12/19 19:04 Blood Culture Gram Stain - Final Blood Blood Culture - Final Staphylococcus epidermidis Assessment and Plan (1) Laryngeal squamous cell carcinoma Current Visit: Yes Status: Acute Code(s): C32.9 - MALIGNANT NEOPLASM OF LARYNX, UNSPECIFIED SNOMED Code(s): 833247963 (2) Aspiration pneumonia Current Visit: Yes Status: Acute Code(s): J69.0 - PNEUMONITIS DUE TO INHALATION OF FOOD AND VOMIT SNOMED Code(s): 377708928 Plan: Assessment and Recommendations: Aspiration Pneumonia: - Per Primary team and pulmonology Hx: Laryngeal Carcinoma: - Patient has been following with [facility], therefore it is unknown his current status of disease and what treatments where given from 2017 to present. I have requested these records to compare to current CTA for possible progressive appearance. - Reviewed CT neck, no definitive recurrence. - Recommend ENT for ongoing durveillance Physician Attest: I have completed full history and physical and agree with above dictation, dictated as a scribe
--- NOTE | 2019-12-16 16:55 | PN ---
PROGRESS NOTE DATE OF SERVICE: 12/16/2019 CHIEF COMPLAINT: Carcinoma of the throat and pneumonitis. HISTORY OF PRESENT ILLNESS: This gentleman is apparently doing fairly well. His pain medication was increased. He is not running a temperature and updrafts and antibiotics continue. PHYSICAL EXAMINATION: He still has bilateral rhonchi and scattered rales in both lung hudson. Cardiac exam is normal. Abdomen is soft. IMPRESSION: 1. Carcinoma of the throat. 2. Pneumonitis. PLAN: Continue with IV fluids, updrafts and antibiotics until he is able to be safely discharged. MMODL / IJN: [id number] /
[2019-12-17] MEDS: AMPICILLIN-SULBACTAM 3 GM in SODIUM CHLORIDE 0.9% 100 ML IVPB SCH ×5 (00:05→23:51)
[2019-12-17] MEDS: HYDROmorphone 0.5 MG/0.5 ML SYRINGE IVP PRN ×5 (02:00→21:28)
[2019-12-17] MEDS: HEPARIN SODIUM,PORCINE 5,000 UNIT/ML 1 ML VIAL SQ SCH ×2 (08:13→19:50)
[2019-12-17] MEDS: THIAMINE 100 MG/ML 2 ML VIAL IVP SCH (08:15)
[2019-12-17] MEDS: FAMOTIDINE 20 MG/2 ML VIAL IV SCH ×2 (08:15→21:28)
[2019-12-17 11:39] LABS: Basophils % (A) 1 %; Eosinophils # (A) 0.3 k/uL (0-0.7); Eosinophils % (A) 6 %; HCT 38.1 % (39.0-53.0); HGB 12.5 gm/dL (13.0-17.5); Lymphocytes # (A) 0.8 k/uL (1.0-4.8); Lymphocytes % (A) 15 %; MCH 32.6 pg (25.0-35.0); MCHC 32.9 g/dL (31.0-37.0); Mean Platelet Volume 8.5; Monocytes # (A) 0.5 k/uL (0-1.0); Monocytes % (A) 9 %; Neutrophils # (A) 3.8 k/uL (1.3-7.7); Neutrophils % (A) 67 %; Platelet Count 343 k/uL (150-450); RBC 3.84 m/uL (4.30-5.90); RDW 13.7 % (11.5-15.5); WBC 5.6 k/uL (3.8-10.6)
[2019-12-17 11:43] LABS: ALT 10 U/L (4-49); AST 23 U/L (17-59); African American GFR (CKD) >90 (>60 ml/min/1.73 sqM); Albumin 3.6 g/dL (3.5-5.0); Alkaline Phosphatase 55 U/L (38-126); Anion Gap 7 mmol/L; Blood Urea Nitrogen 19 mg/dL (9-20); Calcium 8.8 mg/dL (8.4-10.2); Carbon Dioxide 29 mmol/L (22-30); Chloride 100 mmol/L (98-107); Glucose 116 mg/dL (74-99); Non-African American GFR(CKD) >90 (>60 ml/min/1.73 sqM); Potassium 4.5 mmol/L (3.5-5.1); Sodium 136 mmol/L (137-145); Total Bilirubin 0.3 mg/dL (0.2-1.3); Total Protein 6.3 g/dL (6.3-8.2)
--- NOTE | 2019-12-17 15:31 | PN ---
PROGRESS NOTE DATE OF SERVICE: 12/17/2019 REASON FOR FOLLOWUP: 1. Positive blood culture, contamination. 2. Possible aspiration pneumonitis. INTERVAL HISTORY: The patient is currently afebrile. The patient is breathing comfortably. Denies having any chest pain. Occasional cough. No abdominal pain. PHYSICAL EXAMINATION: Blood pressure 160/94 with a pulse of 57, temperature 98.8. He is 95% on room air. General description is a middle-aged male lying in bed in no distress. RESPIRATORY SYSTEM: Unlabored breathing. Clear to auscultation anteriorly. HEART: S1, S2. Regular rate and rhythm. ABDOMEN: Soft. No tenderness. LABS: Hemoglobin is 12.5, white count 5.6. BUN of 19, creatinine 0.74. DIAGNOSTIC IMPRESSION AND PLAN: 1. Patient with positive blood culture with coagulase-negative Staphylococcus, likely skin contamination, but repeat blood culture is coming back positive as well. The patient does not have any clinical disease to go along with it. Blood culture will be repeated. 2. Patient with possible aspiration pneumonitis, admitted to hospital with some shortness of breath, on Unasyn. Finish therapy with oral Augmentin. MMODL / IJN: [id number] /
[2019-12-17] MEDS: HYDROcodone/APAP 5-325MG 1 EACH TAB PEG/G-TUBE PRN ×2 (15:48→23:51)
--- NOTE | 2019-12-17 19:35 | XR ---
EXAMINATION TYPE: XR chest 2V DATE OF EXAM: 12/17/2019 COMPARISON: 07/04/2018 HISTORY: Weakness TECHNIQUE: 2 views FINDINGS: There is some blunting of the right costophrenic angle. Heart size is normal. There are no hilar masses. There is some mild infiltrate right medial lung base. There are numerous surgical clips at the left axilla. There are surgical clips posterior to the trachea in the superior mediastinum. IMPRESSION: There is infiltrate and pleural fluid in the right lower lobe that is new compared to old exam. No heart failure seen. Normal heart.
[2019-12-17 19:46] VITALS: RESP 18
--- NOTE | 2019-12-17 19:52 | PN ---
PROGRESS NOTE CHIEF COMPLAINT: Carcinoma of the throat and pneumonitis. HISTORY OF PRESENT ILLNESS: This gentleman is doing fairly well. He has been stable. He has been afebrile. It sounds as though he will be going home with his sister once he is stabilized. PHYSICAL EXAMINATION: Chest is quite clear. There are only occasional rales and rhonchi. Cardiac exam is normal. Abdomen is soft, nontender. IMPRESSION: 1. Carcinoma of the throat. 2. Aspiration pneumonia. PLAN: Repeat chest x-ray and labs today and probably home in the next day or two, if that is the plan. MMODL / IJN: [id number] /
[2019-12-18] MEDS: HYDROmorphone 0.5 MG/0.5 ML SYRINGE IVP PRN ×2 (02:04→09:11)
[2019-12-18] MEDS: AMPICILLIN-SULBACTAM 3 GM in SODIUM CHLORIDE 0.9% 100 ML IVPB SCH ×2 (05:25→13:18)
[2019-12-18 07:13] VITALS: BP 151/77; PULSE 59; TEMP 97.9
[2019-12-18] MEDS: HEPARIN SODIUM,PORCINE 5,000 UNIT/ML 1 ML VIAL SQ SCH (09:10)
[2019-12-18] MEDS: FAMOTIDINE 20 MG/2 ML VIAL IV SCH (09:11)
[2019-12-18] MEDS: THIAMINE 100 MG/ML 2 ML VIAL IVP SCH (09:11)
--- NOTE | 2019-12-18 15:01 | P.PN ---
Progress Note - Text Progress Note Date: 12/18/19 REASON FOR FOLLOWUP: 1. Positive blood culture, contamination. 2. Possible aspiration pneumonitis. INTERVAL HISTORY: The patient remains to be afebrile. The patient is breathing comfortably. The patient denies having any chest pain. He did have Occasional dry cough. No abdominal pain. No vom iting no diarrhea PHYSICAL EXAMINATION: Blood pressure 151/77 with a pulse of 59 temperature 98.8. He is 95% on room air. General description is a middle-aged male lying in bed in no distress. RESPIRATORY SYSTEM: Unlabored breathing. Clear to auscultation anteriorly. HEART: S1, S2. Regular rate and rhythm. ABDOMEN: Soft. No tenderness. LABS: No new labs obtained today DIAGNOSTIC IMPRESSION AND PLAN: 1. Patient with positive blood culture with coagulase-negative Staphylococcus, likely skin contamination, blood cultures repeated 12/17/2019 so far negative 2. Patient with possible aspiration pneumonitis, chest x-ray done yesterday showed right lower lobe infiltrate Suspicious for pneumonia patient to continue with the Unasyn while inpatient and more his medical course closely
--- NOTE | 2019-12-18 17:53 | PN ---
PROGRESS NOTE CHIEF COMPLAINT: Pneumonitis and CA of the throat. HISTORY OF PRESENT ILLNESS: This gentleman seems to be fairly stable now. Labs were repeated yesterday, as well as x-ray. There is no further extension of his pneumonitis. I will be in contact with his sister who is apparently going to take him back with her. PHYSICAL EXAMINATION: Breath sounds are diminished throughout. Cardiac exam is normal. Abdomen is soft. Extremities are normal. He still cannot speak. IMPRESSION: 1. Carcinoma of the larynx and pharynx. 2. Alcoholism. 3. Chronic obstructive pulmonary disease. PLAN: I had a lengthy discussion with the daughter. He is a terrible management problem at home. He is uncooperative and done a great deal damage to her home due to not controlling his bladder or bowels. He is apparently waiting for an apartment to open up at [employer]. She is willing to take him back until then. Her situation is complicated by the fact that she is in the process of moving and is trying to take care of a 15-year-old daughter who has health issues. MMODL / IJN: [id number] /
== END 2019-12-18 13:45 | disposition left against medical advice (07) | DRG 179 ==
LOC: EC 16:10 → 4SSUR 20:08 → OBSVTOIN 12-14 09:54
PROVIDERS: ADMIT Family Medicine; ATTEND Family Medicine
DX: J69.0 Pneumonitis due to inhalation of food and vomit (principal); I10 Essential (primary) hypertension; C14.0 Malignant neoplasm of pharynx, unspecified; C32.9 Malignant neoplasm of larynx, unspecified; F10.20 Alcohol dependence, uncomplicated; F17.200 Nicotine dependence, unspecified, uncomplicated; I71.9 Aortic aneurysm of unspecified site, without rupture; J44.9 Chronic obstructive pulmonary disease, unspecified; Z20.828 Contact with and (suspected) exposure to other viral communicable diseases; Z93.0 Tracheostomy status; Z82.5 Family history of asthma and other chronic lower respiratory diseases; Z90.5 Acquired absence of kidney
CPT/HCPCS: 36415; 70492; 71046; 71275; 80048; 80053; 80202; 82565; 83605; 83735; 84145; 84484; 84520; 85025; 86140; 87040; 87077; 87186; 93005; 94640; 96361; 96365; 96367; 96375; 96376; 99285

== ENCOUNTER 2020-01-10 08:50 | Observation (INO) | payer OTHER ==
[2020-01-10] MEDS ORDERED: SODIUM CHLORIDE 0.9% 500 ML 500 ML IV STA (09:30)
[2020-01-10] MEDS ORDERED: KETOROLAC 15 MG/ML 1 ML VIAL IVP STA (09:30)
[2020-01-10 09:52] LABS: Basophils # (A) 0.1 k/uL (0-0.2); Basophils % (A) 1 %; Eosinophils # (A) 0.1 k/uL (0-0.7); Eosinophils % (A) 2 %; HCT 42.1 % (39.0-53.0); HGB 13.4 gm/dL (13.0-17.5); Lymphocytes # (A) 0.9 k/uL (1.0-4.8); Lymphocytes % (A) 14 %; MCH 31.2 pg (25.0-35.0); MCHC 31.9 g/dL (31.0-37.0); MCV 97.8 fL (80.0-100.0); Mean Platelet Volume 8.1; Monocytes # (A) 0.5 k/uL (0-1.0); Monocytes % (A) 8 %; Neutrophils # (A) 4.8 k/uL (1.3-7.7); Neutrophils % (A) 73 %; Platelet Count 319 k/uL (150-450); RBC 4.31 m/uL (4.30-5.90); RDW 14.1 % (11.5-15.5); WBC 6.6 k/uL (3.8-10.6)
[2020-01-10 09:53] LABS: Appearance,Urine Clear (Clear); Bilirubin,Urine Negative (Negative); Blood,Urine Negative (Negative); Color,Urine Colorless; Glucose,Urine (UA) Negative (Negative); Ketones,Urine Negative (Negative); Leukocyte Esterase,Urine Negative (Negative); Nitrite,Urine Negative (Negative); PH, Urine 6.5 (5.0-8.0); Protein,Urine Negative (Negative); Specific Gravity,Urine 1.003 (1.001-1.035); Urobilinogen,Urine <2.0 mg/dL (<2.0)
--- NOTE | 2020-01-10 09:56 | ED ---
General Adult HPI <Garrett Hernandez - Last Filed: 01/10/20 13:07> - General Source: patient Mode of arrival: wheelchair Limitations: no limitations, language barrier <Kristy Merchant - Last Filed: 01/10/20 13:29> - General Chief complaint: Abdominal Pain Stated complaint: left arm pain Time Seen by Provider: 01/10/20 09:10 - History of Present Illness Initial comments: Patient is a 64-year-old male with past medical history of hypertension, throat cancer status post surgical resection at [facility], status post tracheostomy and PEG tube placement, presenting to the emergency Department with complaints of left-sided abdominal pain with radiation into his back. Patient has a hard time with speech secondary to a bulging below his tongue which is a not new. He is writing some of his answers and comments on paper. He states he was up last night vomiting. He denies any fever, diarrhea. He denies any chest pain or shortness of breath. He denies history of kidney stones. He denies any hematuria. He has no further complaints. Upon arrival to the ER, patient's blood pressure slightly increased at 175/93, rest of vitals are normal. (Kristy Merchant) - Related Data Home Medications Medication Instructions Recorded Confirmed No Known Home Medications 12/12/19 12/12/19 Allergies Allergy/AdvReac Type Severity Reaction Status Date / Time No Known Allergies Allergy Verified 01/10/20 09:01 Review of Systems ROS Other: All systems not noted in ROS Statement are negative. <Garrett Hernandez - Last Filed: 01/10/20 13:07> ROS Other: All systems not noted in ROS Statement are negative. <Kristy Merchant - Last Filed: 01/10/20 13:29> ROS Statement: Those systems with pertinent positive or pertinent negative responses have been documented in the HPI. Past Medical History Past Medical History: Hypertension Additional Past Medical History / Comment(s): throat ca History of Any Multi-Drug Resistant Organisms: None Reported Additional Past Surgical History / Comment(s): left kidney removed, spleen surgery Past Anesthesia/Blood Transfusion Reactions: No Reported Reaction Past Psychological History: No Psychological Hx Reported Smoking Status: Current every day smoker Past Alcohol Use History: Abuse Past Drug Use History: Marijuana - Past Family History Mother Family Medical History: COPD <Kristy Merchant - Last Filed: 01/10/20 13:29> General Exam Limitations: no limitations, language barrier <ShondaKristy Lloyd - Last Filed: 01/10/20 13:29> - General Exam Comments Initial Comments: GENERAL: Patient appears disheveled, nontoxic, no acute distress. HEAD: Atraumatic, normocephalic. EYES: Pupils equal round and reactive to light, extraocular movements intact, sclera anicteric, conjunctiva are normal. Eyelids were unremarkable. ENT: TMs normal, nares patent. Moist mucous membranes. Patient has history of throat cancer, has large bulge under his time on which is not a new finding. Difficult speech. NECK: Normal range of motion, supple without lymphadenopathy or JVD. History of tracheotomy. LUNGS: Unlabored respirations. Breath sounds clear to auscultation bilaterally and eq ual. No wheezes rales or rhonchi. HEART: Regular rate and rhythm without murmurs, rubs or gallops. ABDOMEN: Mild pain with palpation of the left side of the abdomen, left flank tenderness. PEG tube present, area looks clean, dry, no signs of infection. Soft, normoactive bowel sounds. No guarding, no rebound. No masses appreciated. : Deferred MUSCULOSKELETAL: Normal extremities with adequate strength and normal range of motion, no pitting or edema. No clubbing or cyanosis. Pain with palpation of the thoracic paraspinals, upper trapezius muscle. NEUROLOGICAL: Patient is alert and oriented x 3. Motor and sensory are also intact. Cranial nerves II through XII grossly intact. Symmetrical smile. Normal gait. PSYCH: Normal mood, normal affect. SKIN: Warm, Dry, normal turgor, no rashes or lesions noted. (Kristy Merchant) Course Vital Signs 01/10/20 01/10/20 01/10/20 08:57 10:02 11:30 Temperature 97.6 F Pulse Rate 79 73 77 Respiratory 18 18 18 Rate Blood Pressure 175/93 170/97 168/95 O2 Sat by Pulse 100 100 98 Oximetry Medical Decision Making - Lab Data Result diagrams: 01/10/20 09:32 01/10/20 09:32 <Garrett Hernandez - Last Filed: 01/10/20 13:07> - Lab Data Result diagrams: 01/10/20 09:32 01/10/20 09:32 <Kristy Merchant - Last Filed: 01/10/20 13:29> - Medical Decision Making Patient reevaluated by myself, Dr. Hernandez. Patient presents emergency Department with left scapular region pain as well as abdominal discomfort. Patient states both are still moderate at this time and would prefer seeing the hospital rather than going home. Case was discussed in detail with Dr. Lowery who is very familiar with this patient and will admit. He is aware that patient will likely need further workup regarding left scapular discomfort. EKG was added. Troponin will also be added. Patient may need further imaging the Dr. oLwery is aware of. (Garrett Hernandez) Patient is 64-year-old male with history of throat cancer presenting with a fish sided shoulder pain as well as left-sided abdominal pain, vomiting last night. Patient does not speak well. Vitals are stable upon arrival, afebrile. Lab work shows a normal white count, kidney function is stable, lactic acid was 3.0. Urine shows no evidence of infection, serum alcohol 70. CT of the abdomen shows no acute process, mild colitis. Chest x-ray appears normal. Patient was given some fluids, pain control. He has been stable in the ER. Patient will be admitted for possible placement, accepted by Dr. Lowery. Case discussed with Dr. Hernandez. (Kristy Merchant) - Lab Data Lab Results 01/10/20 01/10/20 01/10/20 Range/Units 09:32 09:32 09:32 WBC 6.6 (3.8-10.6) k/uL RBC 4.31 (4.30-5.90) m/uL Hgb 13.4 (13.0-17.5) gm/dL Hct 42.1 (39.0-53.0) % MCV 97.8 (80.0-100.0) fL MCH 31.2 (25.0-35.0) pg MCHC 31.9 (31.0-37.0) g/dL RDW 14.1 (11.5-15.5) % Plt Count 319 (150-450) k/uL Neutrophils % 73 % Lymphocytes % 14 % Monocytes % 8 % Eosinophils % 2 % Basophils % 1 % Neutrophils # 4.8 (1.3-7.7) k/uL Lymphocytes # 0.9 L (1.0-4.8) k/uL Monocytes # 0.5 (0-1.0) k/uL Eosinophils # 0.1 (0-0.7) k/uL Basophils # 0.1 (0-0.2) k/uL Sodium 135 L (137-145) mmol/L Potassium 4.1 (3.5-5.1) mmol/L Chloride 97 L (98-107) mmol/L Carbon Dioxide 25 (22-30) mmol/L Anion Gap 13 mmol/L BUN 22 H (9-20) mg/dL Creatinine 0.82 (0.66-1.25) mg/dL Est GFR (CKD-EPI)AfAm >90 (>60 ml/min/1.73 sqM) Est GFR (CKD-EPI)NonAf >90 (>60 ml/min/1.73 sqM) Glucose 78 (74-99) mg/dL Lactic Ac Sepsis Rflx Plasma Lactic Acid Brent (0.7-2.0) mmol/L Calcium 9.7 (8.4-10.2) mg/dL Total Bilirubin 0.5 (0.2-1.3) mg/dL AST 39 (17-59) U/L ALT 14 (4-49) U/L Alkaline Phosphatase 78 (38-126) U/L Total Protein 7.9 (6.3-8.2) g/dL Albumin 4.8 (3.5-5.0) g/dL Amylase 165 H (30-110) U/L Lipase 84 (23-300) U/L Urine Color Colorless Urine Appearance Clear (Clear) Urine pH 6.5 (5.0-8.0) Ur Specific [place] 1.003 (1.001-1.035) Urine Protein Negative (Negative) Urine Glucose (UA) Negative (Negative) Urine Ketones Negative (Negative) Urine Blood Negative (Negative) Urine Nitrite Negative (Negative) Urine Bilirubin Negative (Negative) Urine Urobilinogen <2.0 (<2.0) mg/dL Ur Leukocyte Esterase Negative (Negative) Serum Alcohol mg/dL 01/10/20 01/10/20 01/10/20 Range/Units 09:53 09:53 11:12 WBC (3.8-10.6) k/uL RBC (4.30-5.90) m/uL Hgb (13.0-17.5) gm/dL Hct (39.0-53.0) % MCV (80.0-100.0) fL MCH (25.0-35.0) pg MCHC (31.0-37.0) g/dL RDW (11.5-15.5) % Plt Count (150-450) k/uL Neutrophils % % Lymphocytes % % Monocytes % % Eosinophils % % Basophils % % Neutrophils # (1.3-7.7) k/uL Lymphocytes # (1.0-4.8) k/uL Monocytes # (0-1.0) k/uL Eosinophils # (0-0.7) k/uL Basophils # (0-0.2) k/uL Sodium (137-145) mmol/L Potassium (3.5-5.1) mmol/L Chloride (98-107) mmol/L Carbon Dioxide (22-30) mmol/L Anion Gap mmol/L BUN (9-20) mg/dL Creatinine (0.66-1.25) mg/dL Est GFR (CKD-EPI)AfAm (>60 ml/min/1.73 sqM) Est GFR (CKD-EPI)NonAf (>60 ml/min/1.73 sqM) Glucose (74-99) mg/dL Lactic Ac Sepsis Rflx Y Plasma Lactic Acid Brent 3.0 H* (0.7-2.0) mmol/L Calcium (8.4-10.2) mg/dL Total Bilirubin (0.2-1.3) mg/dL AST (17-59) U/L ALT (4-49) U/L Alkaline Phosphatase (38-126) U/L Total Protein (6.3-8.2) g/dL Albumin (3.5-5.0) g/dL Amylase (30-110) U/L Lipase (23-300) U/L Urine Color Urine Appearance (Clear) Urine pH (5.0-8.0) Ur Specific [place] (1.001-1.035) Urine Protein (Negative) Urine Glucose (UA) (Negative) Urine Ketones (Negative) Urine Blood (Negative) Urine Nitrite (Negative) Urine Bilirubin (Negative) Urine Urobilinogen (<2.0) mg/dL Ur Leukocyte Esterase (Negative) Serum Alcohol 70 mg/dL Disposition <Garrett Hernandez - Last Filed: 01/10/20 13:07> Decision Date: 01/10/20 Decision Time: 13:14 <Kristy Merchant - Last Filed: 01/10/20 13:29> Clinical Impression: Back pain, Abdominal pain, Lactic acidosis Disposition: ADMITTED IP TO THIS [facility] Condition: Fair Referrals: Pablito Lowery MD [Primary Care Provider] - 1-2 days
--- NOTE | 2020-01-10 09:58 | XR ---
EXAMINATION TYPE: XR chest 2V DATE OF EXAM: 01/10/2020 COMPARISON: 12/17/2019 TECHNIQUE: PA and lateral views submitted. HISTORY: Chest pain FINDINGS: Postsurgical changes are seen. The heart size normal. Hypertrophic and degenerative change spine. No pleural effusion or pneumothorax. No focal pneumonia. Hyperinflation suggests COPD. IMPRESSION: 1. COPD.
[2020-01-10 10:06] LABS: ALT 14 U/L (4-49); AST 39 U/L (17-59); African American GFR (CKD) >90 (>60 ml/min/1.73 sqM); Albumin 4.8 g/dL (3.5-5.0); Alkaline Phosphatase 78 U/L (38-126); Amylase 165 U/L (30-110); Anion Gap 13 mmol/L; Blood Urea Nitrogen 22 mg/dL (9-20); Calcium 9.7 mg/dL (8.4-10.2); Carbon Dioxide 25 mmol/L (22-30); Chloride 97 mmol/L (98-107); Glucose 78 mg/dL (74-99); Non-African American GFR(CKD) >90 (>60 ml/min/1.73 sqM); Potassium 4.1 mmol/L (3.5-5.1); Sodium 135 mmol/L (137-145); Total Bilirubin 0.5 mg/dL (0.2-1.3); Total Protein 7.9 g/dL (6.3-8.2)
[2020-01-10] MEDS ORDERED: SODIUM CHLORIDE 0.9% 1,000 ML IV STA (11:14)
--- NOTE | 2020-01-10 11:19 | CT ---
EXAMINATION TYPE: CT abdomen pelvis w con DATE OF EXAM: 01/10/2020 COMPARISON: 05/13/2015 HISTORY: 64-year-old male with left sided pain, history of throat CA and Lt nephrectomy TECHNIQUE: Contiguous axial scanning of the abdomen and pelvis following administration of 100 ml Iso luis miguel 300 IV contrast. Delayed images through the kidneys and coronal/sagittal reconstructions perform ed. CT DLP: 830.1 mGycm Automated exposure control for dose reduction was used. FINDINGS: Heart normal size with trace anterior pericardial fluid. Coronary artery calcifications are present. Small hiatal hernia. Some strandy atelectasis at the right lower lung. No pleural effusion. 8 mm hypodensity, likely benign cyst left hepatic dome. Additional couple tiny subcentimeter hypodens ities in the liver too small fragment. CT characterization, likely cysts. Gallbladder within normal limits. No biliary ductal dilatation. Portal venous system is patent. Adrenal glands and pancreas appear within normal limits. Some splenules are redemonstrated within the left subphrenic region. The left nephrectomy bed remains clear. Mild right-sided pelvocaliectasis probably transient. 8 mm cortical hypodensity lateral lower pole right kidney appears to have been present in the 2014 PE T/CT as well suggesting a cyst. Additional small cortical hypodensities likely cysts measuring less t esposito 1 cm. A PEG tube is in place. There may be moderate atherosclerotic narrowing at both celiac axis and SMA origins. No dilated small bowel, free fluid, free air. No mesenteric or retroperitoneal lymphadenopathy. Normal appendix. Mild diverticular change of the right side of the colon. There may be some mildly irregular circumferential and slightly eccentric wall thickening of the dist al rectum, refer to axial images 65 and 66. Multiple pelvic phleboliths. Extensive calcifications in the bilateral inguinal and upper femoral canal regions of unknown etiolog y. No abnormal fluid collection the pelvis or pelvic lymphadenopathy. Bones: Mild degenerative change right hip. End-stage left hip OA with [id number] articulation and s ome bony remodeling. Fixation hardware along the posterior left acetabulum and left iliac bone with a ssociated chronic fracture deformity. There is some bony ankylosis across the bilateral SI joints, un changed from prior. Hypertrophic facet arthropathy mid to lower lumbar spine with moderate to advance d degenerative disc disease. Grade 1 retrolisthesis at L2-L3 and L3-L4. IMPRESSION: 1. REDEMONSTRATED END-STAGE [id number] LEFT HIP OA. 2. STATUS POST LEFT NEPHRECTOMY. NO SUSPICIOUS FINDINGS TO SUGGEST LOCOREGIONAL RECURRENCE. 3. MILD CIRCUMFERENTIAL AND ECCENTRIC WALL THICKENING OF THE DISTAL RECTUM MAY RELATE TO FECAL DEBRIS ADHERENT TO THE WALL. CORRELATE FOR NONSPECIFIC MILD COLITIS. DIRECT VISUALIZATION TO EXCLUDE UNDERL PROSPER NEOPLASM. 4. EXTENSIVE SOFT TISSUE CALCIFICATIONS IN THE BILATERAL INGUINAL AND UPPER FEMORAL CANAL REGIONS OF UNKNOWN ETIOLOGY. CLINICALLY CORRELATE. 5. SMALL HIATAL HERNIA.
[2020-01-10] MEDS ORDERED: MORPHINE SULFATE 4 MG/ML SYRINGE IVP STA (11:37)
[2020-01-10] MEDS ORDERED: NALOXONE 0.4 MG/ML 1 ML VIAL IV PRN (13:08)
[2020-01-10] MEDS ORDERED: ONDANSETRON 4 MG/2 ML VIAL IVP PRN (13:08)
[2020-01-10] MEDS ORDERED: KETOROLAC 15 MG/ML 1 ML VIAL IVP PRN (13:08)
[2020-01-10] MEDS: SODIUM CHLORIDE 0.9% 1,000 ML IV SCH (13:59)
[2020-01-10] MEDS: HYDROmorphone 1 MG/ML 1 ML SYRINGE IVP PRN ×2 (14:15→19:11)
[2020-01-10] MEDS: MORPHINE SULFATE 4 MG/ML SYRINGE IVP PRN ×2 (16:22→22:21)
--- NOTE | 2020-01-10 17:33 | HP ---
HISTORY AND PHYSICAL CHIEF COMPLAINT: Abdominal and back pain. HISTORY OF PRESENT ILLNESS: This is another admission for this 64-year-old white male. He was recently in the hospital. He has a carcinoma of the throat. He was discharged and did follow up in the office. He came back to the emergency room complaining of abdominal pain and studies suggest that he may have a "colitis." He is also complaining of some posterior chest pain. He has had no fever and chills, hemoptysis, orthopnea, PND, chest pain, etc. REVIEW OF SYSTEMS: Otherwise unremarkable and noncontributory. PAST MEDICAL HISTORY, FAMILY HISTORY, PERSONAL AND SOCIAL HISTORY: Otherwise unremarkable. He has not been on any medication and is not allergic to any. PHYSICAL EXAMINATION: Blood pressure is 140/84 with a pulse of 80, respirations of 20 and he is afebrile Generally, he appeared to be chronically ill. Skin was dry. Head, ears, eyes, nose, mouth, and throat were normal and speech was extremely poor. Chest is clear. The cardiac exam is normal and the abdomen is fairly soft and somewhat tender in the lower aspects. Bowel sounds were heard. Extremities normal. Neurologically, he is intact. He is admitted to the hospital with diagnoses: 1. Abdominal pain, etiology unknown. 2. "Colitis.". 3. Carcinoma of the throat. 4. Posterior chest pain. PLAN: 1. Bed rest. 2. IV fluids. 3. Work up abdominal pain and "colitis" if they continue. Meanwhile will talk to him about the discharge plan and Hospice. MMODL / IJN: [id number] /
[2020-01-11] MEDS: MORPHINE SULFATE 4 MG/ML SYRINGE IVP PRN (02:17)
[2020-01-11] MEDS: SODIUM CHLORIDE 0.9% 1,000 ML IV SCH ×2 (04:44→23:23)
[2020-01-11] MEDS: HYDROmorphone 1 MG/ML 1 ML SYRINGE IVP PRN ×4 (05:02→19:08)
--- NOTE | 2020-01-11 15:19 | PN ---
PROGRESS NOTE CHIEF COMPLAINT: Cancer of the pharynx. HISTORY OF PRESENT ILLNESS: This gentleman is complaining of pain. It is not in the abdomen now and it is more in the back or up in the posterior chest area. He has had no fever or chills. PHYSICAL EXAMINATION: Breath sounds are heard on both sides and the cardiac exam is normal. Abdomen is soft. IMPRESSION: 1. Pharyngeal carcinoma. 2. History of nicotine abuse. 3. History of alcohol abuse. 4. Pain in the left posterior chest and flank area. PLAN: 1. Continue with analgesia. 2. Consider working up for possible metastases. MMODL / IJN: [id number] /
[2020-01-12] MEDS: HYDROmorphone 1 MG/ML 1 ML SYRINGE IVP PRN ×6 (00:52→23:16)
[2020-01-12 10:37] VITALS: BMI 20.6
[2020-01-12] MEDS: SODIUM CHLORIDE 0.9% 1,000 ML IV SCH (17:08)
[2020-01-12] MEDS ORDERED: traZODone HCL 50 MG TAB PEG/G-TUBE PRN (18:42)
[2020-01-12] MEDS ORDERED: traZODone HCL 100 MG TAB PO PRN (20:24)
[2020-01-12] MEDS ORDERED: traZODone HCL 50 MG TAB PO PRN (20:24)
[2020-01-13] MEDS: MORPHINE SULFATE 4 MG/ML SYRINGE IVP PRN ×4 (05:13→21:32)
[2020-01-13] MEDS: SODIUM CHLORIDE 0.9% 1,000 ML IV SCH (05:13)
[2020-01-13] MEDS: HYDROmorphone 1 MG/ML 1 ML SYRINGE IVP PRN ×3 (07:57→19:17)
--- NOTE | 2020-01-13 13:25 | PN ---
PROGRESS NOTE DATE OF SERVICE: 01/12/2020 CHIEF COMPLAINT: Abdominal pain, left scapular pain. HISTORY OF PRESENT ILLNESS: This gentleman is doing well and there has been no new problems or issues. He is complaining mostly of pain in the scapular area. PHYSICAL EXAMINATION: Chest is clear. Cardiac exam is normal. Abdomen is soft and there are no masses. IMPRESSION: 1. Carcinoma of the throat. 2. Posterior chest and left lower quadrant pain. PLAN: 1. Review CT results. 2. Increase activity. 3. Work on discharge planning. 4. Order total body bone scan to look at the scapula and left-sided rib cage. MMODL / IJN: [id number] /
--- NOTE | 2020-01-13 19:28 | NM ---
EXAMINATION TYPE: NM bone scan whole body DATE OF EXAM: 01/13/2020 COMPARISON: NONE HISTORY: Pain in the scapula. Throat cancer. Delayed whole-body scanning was performed following the injection of 26.2 mCi Tc 99m MDP. Images acq uired 10 hours post injection. FINDINGS: There is increased uptake and deformity involving the left hip joint consistent with arthritic diseas e and hip dysplasia or subluxation deformity. There is slight increased uptake at the inferior tip of the left scapula and inferior tip of the right scapula that is thought to be within normal limits. T here is mild increased uptake in the right hand at the second and third MP joints consistent with art hritic disease. There is a mild lumbar dextroscoliosis. Uptake in the body of the scapula and the zack ulder joints is symmetric and normal in appearance. IMPRESSION: Increased uptake consistent with arthritic disease. Overall I do not see a pattern of osseous metasta tic disease.
[2020-01-14] MEDS: SODIUM CHLORIDE 0.9% 1,000 ML IV SCH ×2 (02:08→18:17)
[2020-01-14] MEDS: HYDROmorphone 1 MG/ML 1 ML SYRINGE IVP PRN ×3 (02:09→18:35)
[2020-01-14] MEDS: MORPHINE SULFATE 4 MG/ML SYRINGE IVP PRN ×3 (05:25→21:17)
[2020-01-14] MEDS: lisinopriL 20 MG TAB PO SCH (10:39)
--- NOTE | 2020-01-14 12:37 | PN ---
PROGRESS NOTE DATE OF SERVICE: 01/13/2020 CHIEF COMPLAINT: Abdominal pain and left scapular pain with history of carcinoma of the throat. HISTORY OF PRESENT ILLNESS: This gentleman was to have been discharged, but apparently does not have a place to go. His blood pressure is also slightly elevated and this will be addressed. PHYSICAL EXAM: Chest is clear and his cardiac exam is normal. The abdomen is soft, nontender. He is complaining of pain in left lower quadrant but there are no masses and there is no tenderness. He also talked about pain in the left scapula and there is nothing on exam. Full body bone scan has been ordered and we will wait for discharge plan. PHYSICAL EXAMINATION: Chest is clear. Cardiac exam is normal. Abdomen is soft, nontender. IMPRESSION: 1. Left lower quadrant pain. 2. Left scapular pain. 3. Carcinoma of the throat. 4. Dehydration. PLAN: Hold discharge for today and wait for discharge plan. MMODL / IJN: [id number] /
--- NOTE | 2020-01-14 19:54 | PN ---
PROGRESS NOTE DATE OF SERVICE: 01/14/2020. CHIEF COMPLAINT: Abdominal and back pain. HISTORY OF PRESENT ILLNESS: This gentleman remains fairly stable. He is refusing the PEG tube feedings. We are trying to work out a discharge plan, but the apartment he is supposed to go is not ready, and will not be ready until . PHYSICAL EXAMINATION: His chest is clear. The cardiac exam is normal. Abdomen is flat, soft and nontender. He states he has pain in the left lower quadrant, but nothing is palpable. Posterior chest area and scapular area are also normal in appearance. IMPRESSION: 1. Left lower quadrant pain. 2. Left scapular pain. 3. Carcinoma of the pharynx. PLAN: 1. Review total body bone scan: Negative. 2. Follow blood pressure. 3. Discharge to his apartment once it is ready, which may not be until . 4. Discuss hospice. MMODL / IJN: [id number] /
--- NOTE | 2020-01-15 04:00 | CONS ---
CONSULTATION DATE OF DICTATION: 01/14/2020. REASON FOR CONSULTATION: Abnormal CT scan showing thickening of the rectum. HISTORY OF PRESENT ILLNESS: The patient is a 64-year-old white male admitted with history of hypertension and history of throat cancer for which he underwent surgical resection at [facility] status post tracheostomy and PEG tube placement in the past, admitted to the hospital because of left-sided abdominal pain mostly in the left upper quadrant area radiating to the back. No nausea, vomiting. He did have a CT of the abdomen and pelvis done that showed thickening of the rectum and hence a colonoscopy was recommended by the radiologist. The patient has speech impairment and could not understand him very well. He reports no rectal bleeding or melena. He apparently did have some diarrhea this morning. Prior to it, he did have history of constipation. PAST MEDICAL HISTORY: Significant for hypertension, history of head and neck CA, status post radiation and chemotherapy in the past. PAST SURGICAL HISTORY: Tracheostomy, PEG tube placement, left kidney removed, spleen surgery. MEDICATIONS AT HOME: None. ALLERGIES: None. SOCIAL HISTORY: Chronic smoker. Heavy alcohol abuse in the past. FAMILY HISTORY: Unremarkable. REVIEW OF SYSTEMS: Review of systems could not be obtained as patient is very difficult to understand. PHYSICAL EXAMINATION: Blood pressure 154/80, pulse rate 72, temperature 98. HEENT EXAMINATION: Unremarkable. Conjunctivae pink. Sclerae anicteric. Oral cavity, no lesions. NECK: No JVD or lymph node enlargement. CHEST: Clear to auscultation. HEART: Regular rate and rhythm. ABDOMEN: Soft. Bowel sounds are positive. PEG tube in place. PEG tube feeds going. EXTREMITIES: No pedal edema. NEURO: He is alert, oriented to name and place. No focal deficits. LAB: WBC 6.6, hemoglobin 13.4, platelets normal. Basic metabolic panel is within normal limits. BUN and creatinine normal. ALT, AST, T bilirubin, alkaline phosphatase are normal. Serum alcohol level was 70 at the time of admission to the hospital. CT of the abdomen done at the time of admission to the hospital did show thickening of the rectum with mild circumferential and eccentric wall thickening in the distal rectum may be related to fecal debris, but mild colitis or mass could not be excluded and direct visualization was recommended. Also there was evidence of small hiatal hernia. Bone scan done yesterday did show increased uptake in the left hip joint consistent with arthritic disease. IMPRESSION: 1. Altered bowel movements and CT scan of the abdomen showing thickening of the rectum. Rule out inflammation versus mass. At this time it is unclear whether the patient ever had endoscopic intervention in the past with a colonoscopy. Tried to discuss with him regarding undergoing a colonoscopy during this hospitalization, but at this time he does not want to have this done. 2. History of head and neck cancer, status post chemo radiation in the past. 3. History of gastrostomy placement, PEG tube, doing well, tolerating feeds well. 4. Severe degenerative joint disease. RECOMMENDATIONS: 1. Continue with symptomatic and supportive care. 2. Recommend an outpatient colonoscopy as the patient is not willing to undergo endoscopic intervention during the hospitalization. 3. We will follow with you closely. Thank you for this consultation. RILEY / NEELAM: [id number] /
[2020-01-15] MEDS: MORPHINE SULFATE 4 MG/ML SYRINGE IVP PRN ×2 (07:28→14:45)
[2020-01-15] MEDS: lisinopriL 20 MG TAB PO SCH (09:37)
[2020-01-15] MEDS: SODIUM CHLORIDE 0.9% 1,000 ML IV SCH ×2 (09:38→20:34)
[2020-01-15] MEDS: HYDROmorphone 1 MG/ML 1 ML SYRINGE IVP PRN (20:33)
[2020-01-15 21:15] VITALS: RESP 16
--- NOTE | 2020-01-15 22:01 | PN ---
PROGRESS NOTE CHIEF COMPLAINT: Dehydration, weakness and carcinoma of the throat. HISTORY OF PRESENT ILLNESS: This gentleman remains stable. Still working on a discharge plan. Gastroenterology reviewed the patient and recommended colonoscopy, but he has refused. Apparently he has an apartment which is going to be available to him on the . PHYSICAL EXAMINATION: Chest is clear and cardiac exam is normal. The abdomen is flat and seems soft and nontender. IMPRESSION: 1. Left lower quadrant pain. 2. Left scapular or posterior chest pain. 3. Carcinoma of the pharynx. 4. Chronic obstructive pulmonary disease. 5. Alcoholism. 6. Status post left nephrectomy. PLAN: Discharge once arrangements are made. MMODL / IJN: [id number] /
[2020-01-16] MEDS: HYDROmorphone 1 MG/ML 1 ML SYRINGE IVP PRN (00:40)
--- NOTE | 2020-01-16 00:49 | PN ---
PROGRESS NOTE DATE OF DICTATION: 01/15/2020 The patient is a 64-year-old white male admitted to hospital with abdominal pain, history of laryngeal cancer, has a PEG tube in place. The patient states that he does not have any abdominal pain today. We are consulted because of abnormal CAT scan that showed thickening of the rectum. Discussed about having a colonoscopy and he refused at this time. As per the nursing staff, he did not have any bowel movements today. No rectal bleeding. PHYSICAL EXAMINATION: Vital signs are stable. Blood pressure is 147/78, pulse rate 59, temperature 98. HEENT EXAMINATION: Unremarkable. Conjunctivae pink. Sclerae anicteric. Oral cavity, no lesions. NECK: No JVD or lymph node enlargement. CHEST: Clear to auscultation. HEART: Regular rate and rhythm. ABDOMEN: Soft. Bowel sounds are positive. PEG tube in place. EXTREMITIES: No pedal edema. LABS: No labs available from today. IMPRESSION: 1. Left upper quadrant abdominal pain, resolved. 2. History of laryngeal cancer, status post trach and PEG placement. PEG tube feeds being tolerated well. 3. Abnormal CAT scan showing thickened rectum. The patient however denies any rectal pain or rectal bleeding or constipation. RECOMMENDATION: 1. Continue with symptomatic and supportive care. 2. Patient refuses to have a colonoscopy at this time. 3. Repeat labs in the morning. 4. We will follow with you. Thank you for this consultation. RILEY / JEFFREYN: [id number] /
[2020-01-16 05:07] VITALS: BP 137/81; PULSE 60; TEMP 97.8
== END 2020-01-16 08:20 | disposition left against medical advice (07) ==
LOC: EC 08:50 → 1SOBS 13:14 → 4SSUR 15:27 → 5NMEDONC 17:46
PROVIDERS: ADMIT Family Medicine; ATTEND Family Medicine
DX: M79.602 Pain in left arm (principal); Z53.29 Procedure and treatment not carried out because of patient's decision for other reasons; R10.12 Left upper quadrant pain; R11.10 Vomiting, unspecified; M25.512 Pain in left shoulder; R07.9 Chest pain, unspecified; R93.3 Abnormal findings on diagnostic imaging of other parts of digestive tract; K52.9 Noninfective gastroenteritis and colitis, unspecified; E86.0 Dehydration; R10.32 Left lower quadrant pain; R47.89 Other speech disturbances; I49.1 Atrial premature depolarization; R94.31 Abnormal electrocardiogram [ECG] [EKG]; K13.79 Other lesions of oral mucosa; I10 Essential (primary) hypertension; M16.12 Unilateral primary osteoarthritis, left hip; J44.9 Chronic obstructive pulmonary disease, unspecified; F10.20 Alcohol dependence, uncomplicated; F17.200 Nicotine dependence, unspecified, uncomplicated; Z98.890 Other specified postprocedural states; Z85.21 Personal history of malignant neoplasm of larynx; Z92.3 Personal history of irradiation; Z92.21 Personal history of antineoplastic chemotherapy; Z87.898 Personal history of other specified conditions; Z93.1 Gastrostomy status; Z90.5 Acquired absence of kidney; Z87.19 Personal history of other diseases of the digestive system; Z82.5 Family history of asthma and other chronic lower respiratory diseases; Y90.3 Blood alcohol level of 60-79 mg/100 ml
CPT/HCPCS: 96376 ×8; 96375 ×2; 96361; 96374; 99285; 36415; 93005; 80053; 82150; 83605; 83690; 84484; 85025; 81003; 71046; 74177; 78306; G0378 ×9; G0480; A9503; J2270 ×5; J2405; J1170 ×7; J1885 ×2; Q9967; 80320

== ENCOUNTER 2020-05-14 09:32 | Day surgery (SDC) | payer OTHER ==
[2020-05-14 11:00] VITALS: TEMP 97.8
[2020-05-14] MEDS ORDERED: LACTATED RINGERS 1,000 ML IV ONE (11:02)
[2020-05-14] MEDS ORDERED: LIDOCAINE 1% (10MG/ML) FOR IV START INTRADERMA PRN (11:03)
[2020-05-14] MEDS ORDERED: LACTATED RINGERS 1,000 ML IV SCH (11:03)
[2020-05-14] MEDS ORDERED: PROPOFOL 10 MG/ML 20 ML VIAL IV ONE (12:05)
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
--- NOTE | 2020-05-14 12:22 | P.OP ---
Date of Procedure: 05/14/20 Preoperative Diagnosis: PEG tube malfunction Postoperative Diagnosis: Malnutrition Procedure(s) Performed: EGD with PEG tube Anesthesia: MAC Surgeon: Aidan Resendiz Pathology: none sent Condition: stable Disposition: PACU Description of Procedure: Patient's placed on the endoscopy table lateral position. She received IV sedation. The patient received IV sedation. The gastroscope oropharynx passed in the esophagus and stomach. Scope was then placed through the pylorus. The scope was then brought back stomach. The PEG tube was seen. The PEG tube was then withdrawn. Under direct vision a new ABRAHAM replacement PEG tube was placed. The balloon was inflated with 7 mL of saline. Patient top procedure well and was sent back to recovery room stable condition.
[2020-05-14 12:30] VITALS: RESP 16
[2020-05-14 12:43] VITALS: BP 164/96; PULSE 94
== END 2020-05-14 12:58 ==
LOC: ORWHC2ENDO 09:32
PROVIDERS: ATTEND Surgery
DX: K94.23 Gastrostomy malfunction (principal); E46 Unspecified protein-calorie malnutrition; I10 Essential (primary) hypertension; K21.9 Gastro-esophageal reflux disease without esophagitis; Z90.81 Acquired absence of spleen; Z90.5 Acquired absence of kidney; Z98.890 Other specified postprocedural states; Z85.21 Personal history of malignant neoplasm of larynx; Z79.899 Other long term (current) drug therapy; M19.90 Unspecified osteoarthritis, unspecified site; Z87.01 Personal history of pneumonia (recurrent); Z92.21 Personal history of antineoplastic chemotherapy; G89.29 Other chronic pain; Z96.642 Presence of left artificial hip joint; F17.200 Nicotine dependence, unspecified, uncomplicated; Z82.5 Family history of asthma and other chronic lower respiratory diseases
CPT/HCPCS: 43246; J2704

== ENCOUNTER 2020-08-23 08:52 | Emergency (ER) | payer OTHER ==
[2020-08-23 09:05] VITALS: PULSE 89; RESP 18; TEMP 98.2
--- NOTE | 2020-08-23 10:36 | XR ---
EXAMINATION TYPE: XR KUB DATE OF EXAM: 08/23/2020 COMPARISON: NONE HISTORY: Pain TECHNIQUE: Single supine KUB image of the abdomen is obtained FINDINGS: The supervising technologist Injected 50 cc Isovue 370 through peg tube for patency. PEG tube is in place. Contrast is noted to reside within the stomach. No evidence for extravasation. IMPRESSION: 1. As above
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
== END 2020-08-23 10:49 | disposition home or self-care (01) ==
LOC: EC 08:52
DX: K94.23 Gastrostomy malfunction (principal); I10 Essential (primary) hypertension; F17.200 Nicotine dependence, unspecified, uncomplicated; M19.90 Unspecified osteoarthritis, unspecified site
CPT/HCPCS: 43762; 74018; 99282

== ENCOUNTER 2020-10-12 13:15 | Emergency (ER) | payer OTHER ==
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
--- NOTE | 2020-10-12 14:13 | XR ---
KUB HISTORY: PEG tube placement Frontal KUB is submitted. 25 cc Isovue-300 was administered through the PEG tube prior to imaging. There is a tube overlying the left hemiabdomen. Contrast material is present within the stomach. Ther e is no evident pneumoperitoneum. Probable contrast material present over the left lower quadrant may been spell during the preparation of the exam, correlate. Marked osteoarthritic change present in th e left hip, postop changes noted to the left hemipelvis. There are overlying artifacts. Multiple calc ifications are present over the pelvis. Lung bases are clear. There is a scoliotic curvature, degener ative disc changes in the visualized spine. Possible laminectomy on the left at L5. IMPRESSION: PEG tube is within the stomach. Additional findings above.
[2020-10-12 14:27] VITALS: BP 149/89; PULSE 62; RESP 18; TEMP 98
== END 2020-10-12 14:24 | disposition home or self-care (01) ==
LOC: EC 13:15
DX: K94.23 Gastrostomy malfunction (principal); F17.200 Nicotine dependence, unspecified, uncomplicated; I10 Essential (primary) hypertension; K21.9 Gastro-esophageal reflux disease without esophagitis; M19.90 Unspecified osteoarthritis, unspecified site
CPT/HCPCS: 74018; 99283; 43762; Q9967

== ENCOUNTER 2021-12-23 17:56 | Emergency (ER) | payer MEDICARE, OTHER ==
[2021-12-23] MEDS ORDERED: PANTOPRAZOLE 40 MG/10 ML VIAL IVP STA ×2 (18:41→18:52)
[2021-12-23] MEDS ORDERED: SODIUM CHLORIDE 0.9% 500 ML 500 ML IV STA (18:41)
[2021-12-23] MEDS ORDERED: OCTREOTIDE 500 MCG in SODIUM CHLORIDE 0.9% 250 ML IV STA (18:41)
[2021-12-23] MEDS ORDERED: ONDANSETRON 4 MG/2 ML VIAL IVP STA (18:41)
[2021-12-23] MEDS ORDERED: OCTREOTIDE 100 MCG/ML INJ IVP STA (18:41)
[2021-12-23] MEDS ORDERED: diphenhydrAMINE 50 MG/ML 1 ML VIAL IVP PRN (18:43)
[2021-12-23] MEDS ORDERED: cefTRIAXone IN SWFI 1,000 MG/10 ML SYRINGE IVP STA (18:52)
[2021-12-23 18:55] LABS: Basophils # (A) 0.1 k/uL (0-0.2); Basophils % (A) 1 %; Eosinophils # (A) 0.1 k/uL (0-0.7); Eosinophils % (A) 2 %; HCT 47.4 % (39.0-53.0); HGB 14.9 gm/dL (13.0-17.5); Lymphocytes # (A) 1.3 k/uL (1.0-4.8); Lymphocytes % (A) 19 %; MCH 31.5 pg (25.0-35.0); MCHC 31.5 g/dL (31.0-37.0); MCV 100.1 fL (80.0-100.0); Mean Platelet Volume 8.4; Monocytes # (A) 0.5 k/uL (0-1.0); Monocytes % (A) 8 %; Neutrophils # (A) 4.7 k/uL (1.3-7.7); Neutrophils % (A) 69 %; Platelet Count 411 k/uL (150-450); RBC 4.73 m/uL (4.30-5.90); RDW 13.2 % (11.5-15.5); WBC 6.8 k/uL (3.8-10.6)
[2021-12-23 19:03] LABS: INR 0.9 (<1.2); Partial Thromboplastin Time 23.9 sec (22.0-30.0); Prothrombin Time 9.9 sec (9.0-12.0)
[2021-12-23 19:05] LABS: Albumin 4.9 g/dL (3.5-5.0); Potassium 4.7 mmol/L (3.5-5.1); Total Bilirubin 0.3 mg/dL (0.2-1.3); Total Protein 8.2 g/dL (6.3-8.2)
--- NOTE | 2021-12-23 19:21 | XR ---
EXAMINATION: XR chest 1V portable DATE AND TIME: 12/23/2021 7:02 PM CLINICAL INDICATION: PHH; cough TECHNIQUE: Departmental protocol COMPARISON: 01/10/2020 FINDINGS: Surgical clips noted over the left axilla and left hemithorax laterally. Left-sided longitudinally or iented skinfolds are appreciated. The lungs are clear. The pleural spaces are negative. The cardiac silhouette is not enlarged. The remainder of the mediastinal silhouette is unremarkable. The skeletal structures and soft tissues are negative for acute findings. IMPRESSION: No acute radiographic process.
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
[2021-12-23 20:49] VITALS: BP 162/95; PULSE 102; RESP 18; TEMP 98.1
== END 2021-12-23 20:47 | disposition other institution (70) ==
LOC: EC 17:56 → SUPCPDRO 17:56 → EC 20:47
DX: K92.2 Gastrointestinal hemorrhage, unspecified (principal); K92.0 Hematemesis; F10.20 Alcohol dependence, uncomplicated; R74.02 Elevation of levels of lactic acid dehydrogenase [LDH]; F17.200 Nicotine dependence, unspecified, uncomplicated; I10 Essential (primary) hypertension; Y90.1 Blood alcohol level of 20-39 mg/100 ml
CPT/HCPCS: 36415; 86900; 86901; 80053; 83605; 83690; 83735; 85025; 85384; 85610; 85730; 86850; 82271; 71045; 99291; 96365; 96375; 96376; G0480; J1200; J2405; J2354 ×2; J0696; C9113; 80320